=== PATIENT | female | born 1985 | race Caucasian/White ===

== ENCOUNTER → 2021-01-07 11:48 | Outpatient (CLI) | payer OTHER, MEDICAID, SELFPAY ==
[2021-01-07 12:54] LABS: Add Manual Diff / Slide Review NO; Basophils Absolute Auto 0 /uL (0-100); Basophils Percent Auto 0.7 % (0-2); Eosinophils Absolute Auto 100 /uL (0-450); Eosinophils Percent Auto 1.2 % (2-4); Lymphocytes Absolute Auto 2400 /uL (1100-4500); Lymphocytes Percent Auto 36.2 % (25-40); Mean Corpuscular HGB Conc 33.3 % (30-36); Mean Corpuscular Hemoglobin 28.9 PG (26-34); Mean Corpuscular Volume 86.9 fL (80-100); Monocytes Absolute Auto 500 /uL (0-900); Monocytes Percent Auto 7.3 % (3-14); Neutrophils Absolute Auto 3700 /uL (1500-7000); Neutrophils Percent Auto 54.6 % (50-75); Platelet Count 210 X10^3/uL (150-400); Red Blood Cell Count 4.49 X10^6/uL (4.0-5.2); Red Cell Distribution Width 12.9 % (11.6-14.8); White Blood Cell Count 6.7 X10^3/uL (4.5-11.0)
[2021-01-07 13:03] LABS: Hemoglobin A1C% w Est Avg Glu 4.9 % (4.0-6.0)
[2021-01-07 13:15] LABS: Cholesterol 163 mg/dL (140-199); HDL Cholesterol 46 mg/dL (40-60); LDL Cholesterol Calculated 104 mg/dL (<100); Triglycerides 64 mg/dL (35-150)
[2021-01-07 13:43] LABS: Ferritin 13 ng/mL (6-137)
[2021-01-07 13:57] LABS: HEMOLYSIS < 15 (0-50); Iron 46 ug/dL (37-170)
[2021-01-07 14:09] LABS: Percent Iron Saturation 15 % (15-50); Total Iron Binding Capacity 303 ug/dL (265-497); Transferrin 219 mg/dL (206-381)
[2021-01-07 14:29] LABS: TSH w/ Reflex to FT4 0.74 uIU/mL (0.47-4.68)
[2021-01-07 14:32] LABS: Urine Chlamydia NOT DETECTED; Urine N gonorrhoeae NOT DETECTED
[2021-01-08 05:30] LABS: HBsAg Screen Negative (Negative); Hepatitis A Antibody IgM Negative (Negative); Hepatitis B Core Antibody IgM Negative (Negative); Hepatitis C Antibody <0.1 s/co ratio (0.0-0.9); RPR Screen Non Reactive (Non Reactive)
[2021-01-09 19:59] LABS: HIV 1 & 2 Ab/Ag 4th Gen Combo NEGATIVE (NEGATIVE)
== END ==
PROVIDERS: PCP Family Medicine; Referring Provider Family Medicine; Visit Provider Family Medicine
DX: D64.9 Anemia, unspecified (principal); F41.8 Other specified anxiety disorders; R00.2 Palpitations; N80.9 Endometriosis, unspecified; Z11.3 Encounter for screening for infections with a predominantly sexual mode of transmission
CPT/HCPCS: 36415; 80061; 80074; 82728; 83036; 83540; 83550; 84443; 85025; 86592; 87389; 87491; 87591

== ENCOUNTER → 2022-05-14 08:16 | Outpatient (CLI) | payer OTHER, MEDICAID, SELFPAY ==
--- NOTE | 2022-05-14 08:19 | DI.CT.S_ITS ---
PROCEDURE: CT CHEST WO CON INDICATIONS: hemoptysis TECHNIQUE: Noncontrast 5 mm thick sections acquired from the pulmonary apices to the posterior costophrenic angles. 1 mm lung window, 5 mm thick coronal and sagittal and 7 mm axial MIP reformats were then acquired. For radiation dose reduction, the following was used: automated exposure control, adjustment of mA and/or kV according to patient size. COMPARISON: None. FINDINGS: Image quality: Excellent. Lungs and pleura: No acute air space opacities. No pleural effusions or pneumothorax. Central and peripheral airways are patent and normal in caliber. Mediastinum: Heart size is normal. No pericardial effusion. No mediastinal adenopathy by size criteria. Thoracic aorta and central pulmonary arteries are normal in size. Esophagus is normal in caliber. No hiatal hernia. Bones and chest wall: No suspicious bony lesions. No vertebral body compression fractures. No axillary or supraclavicular adenopathy by size criteria. Thyroid gland is unremarkable . Abdomen: Visualized upper abdominal solid organs and bowel loops appear normal in the absence of contrast. IMPRESSION: No evidence acute pulmonary process. Dictated by: Angel Santos M.D. on 05/14/2022 at 8:50 Approved by: Angel Santos M.D. on 05/14/2022 at 8:52
== END ==
PROVIDERS: PCP Family Medicine; Referring Provider Nurse Practitioner Family; Visit Provider Nurse Practitioner Family
DX: R04.2 Hemoptysis (principal)
CPT/HCPCS: 71250

== ENCOUNTER → 2022-05-22 11:06 | Outpatient (CLI) | payer OTHER, MEDICAID, SELFPAY ==
[2022-05-22 11:34] LABS: Add Manual Diff / Slide Review NO; Basophils Absolute Auto 0 /uL (0-100); Basophils Percent Auto 0.5 % (0-2); Eosinophils Absolute Auto 200 /uL (0-450); Eosinophils Percent Auto 3.7 % (2-4); Hematocrit 40.5 % (36-46); Hemoglobin 13.7 g/dL (12.0-16.0); Lymphocytes Absolute Auto 2400 /uL (1100-4500); Lymphocytes Percent Auto 37.3 % (25-40); Mean Corpuscular HGB Conc 33.8 % (30-36); Mean Corpuscular Hemoglobin 28.9 PG (26-34); Mean Corpuscular Volume 85.4 fL (80-100); Monocytes Absolute Auto 500 /uL (0-900); Monocytes Percent Auto 7.7 % (3-14); Neutrophils Absolute Auto 3300 /uL (1500-7000); Neutrophils Percent Auto 50.8 % (50-75); Platelet Count 184 X10^3/uL (150-400); Red Blood Cell Count 4.74 X10^6/uL (4.0-5.2); Red Cell Distribution Width 13.1 % (11.6-14.8); White Blood Cell Count 6.5 X10^3/uL (4.5-11.0)
[2022-05-22 12:02] LABS: Alanine Aminotransferase 93 IU/L (<35); Albumin 4.4 g/dL (3.5-5.0); Albumin Globulin Ratio 1.3 (1.0-2.8); Alkaline Phosphatase 58 U/L (38-126); Aspartate Aminotransferase 84 IU/L (14-36); BUN Creatinine Ratio 21.7 (6-22); Bilirubin Total 0.6 mg/dL (0.2-1.3); Blood Urea Nitrogen 13 mg/dL (7-17); Calcium 8.8 mg/dL (8.4-10.2); Carbon Dioxide 24 mmol/L (22-32); Chloride 105 mmol/L (98-107); Estimated Glomerular Filt Rate > 60 mL/min (>60); Globulin 3.4 g/dL (1.7-4.1); Glucose 97 mg/dL (70-100); HEMOLYSIS < 15 (0-50); Potassium 3.6 mmol/L (3.4-5.1); Sodium 140 mmol/L (137-145); Total Protein 7.8 g/dL (6.3-8.2)
== END ==
PROVIDERS: PCP Family Medicine; Referring Provider Family Medicine; Visit Provider Family Medicine
DX: R10.9 Unspecified abdominal pain (principal); R11.10 Vomiting, unspecified
CPT/HCPCS: 36415; 80053; 85025

== ENCOUNTER → 2022-06-18 12:28 | Outpatient (CLI) | payer OTHER, MEDICAID, SELFPAY ==
[2022-06-18 13:36] LABS: Add Manual Diff / Slide Review NO; Basophils Absolute Auto 0 /uL (0-100); Basophils Percent Auto 0.7 % (0-2); Eosinophils Absolute Auto 100 /uL (0-450); Eosinophils Percent Auto 1.1 % (2-4); Hematocrit 41.1 % (36-46); Hemoglobin 13.9 g/dL (12.0-16.0); Lymphocytes Absolute Auto 2000 /uL (1100-4500); Lymphocytes Percent Auto 38.5 % (25-40); Mean Corpuscular HGB Conc 33.7 % (30-36); Mean Corpuscular Hemoglobin 28.7 PG (26-34); Monocytes Absolute Auto 400 /uL (0-900); Monocytes Percent Auto 7.9 % (3-14); Neutrophils Absolute Auto 2700 /uL (1500-7000); Neutrophils Percent Auto 51.8 % (50-75); Platelet Count 211 X10^3/uL (150-400); Red Blood Cell Count 4.83 X10^6/uL (4.0-5.2); White Blood Cell Count 5.3 X10^3/uL (4.5-11.0)
[2022-06-18 13:55] LABS: Alanine Aminotransferase 26 IU/L (<35); Albumin 4.5 g/dL (3.5-5.0); Albumin Globulin Ratio 1.3 (1.0-2.8); Alkaline Phosphatase 59 U/L (38-126); Aspartate Aminotransferase 27 IU/L (14-36); BUN Creatinine Ratio 20.3 (6-22); Bilirubin Total 0.5 mg/dL (0.2-1.3); Blood Urea Nitrogen 12 mg/dL (7-17); Carbon Dioxide 23 mmol/L (22-32); Chloride 106 mmol/L (98-107); Estimated Glomerular Filt Rate > 60 mL/min (>60); Globulin 3.5 g/dL (1.7-4.1); Glucose 82 mg/dL (70-100); HEMOLYSIS < 15 (0-50); Potassium 4.7 mmol/L (3.4-5.1); Sodium 140 mmol/L (137-145)
[2022-06-25 14:32] LABS: H.pylori IgG 0.14 (0.00-0.79)
== END ==
PROVIDERS: PCP Family Medicine; Referring Provider Family Medicine; Visit Provider Family Medicine
DX: F43.10 Post-traumatic stress disorder, unspecified (principal); K92.2 Gastrointestinal hemorrhage, unspecified; R10.9 Unspecified abdominal pain
CPT/HCPCS: 36415; 80053; 85025; 86677

== ENCOUNTER → 2022-06-26 09:43 | Outpatient (CLI) | payer OTHER, MEDICAID, SELFPAY ==
--- NOTE | 2022-06-26 09:44 | DI.NM.S_ITS ---
PROCEDURE: NM HIDA WITH CCK PHARMACEUTICAL: 5.5 mCi Tc-99m mebrofenin IV; 1.7 mcg CCK IV. INDICATIONS: RUQ pain TECHNIQUE: Following intravenous administration of Tc-99m mebrofenin, sequential anterior abdominal images were obtained. To evaluate the contractile response of the gallbladder in response to Cholecystokinin (CCK), sincalide (0.02 ?g/kg) was administered by slow intravenous infusion approximately 60 minutes after the administration of the radiopharmaceutical. Sequential imaging was continued for 30 minutes after the start of CCK infusion. Gallbladder ejection fraction was calculated. COMPARISON: Merged With [facility], , ABDOMEN COMPLETE, 05/10/2017, 20:28. FINDINGS: Biliary scan: There is normal tracer uptake and excretion by the liver. There is normal visualization of the intrahepatic ducts, common bile duct, and gallbladder. There is normal tracer transit into the duodenum. CCK stimulation: There is normal contractile response of the gallbladder to CCK infusion. The calculated gallbladder ejection fraction is 57%; normal values are above 35%. It has been shown that any patient abdominal pain after CCK administration is related to the rate of CCK injection, rather than to any underlying gallbladder disease (Clinical Nuclear Medicine 2012; 37: 63-70. Journal of Nuclear Medicine 2014; 55: 1-9). IMPRESSION: 1. Normal filling of gallbladder. No evidence for acute cholecystitis. 2. Normal contractile response of gallbladder to CCK stimulation. Dictated by: Karma Arnold M.D. on 06/26/2022 at 12:50 Approved by: Karma Arnold M.D. on 06/26/2022 at 12:52
== END ==
PROVIDERS: PCP Family Medicine; Referring Provider Family Medicine; Visit Provider Family Medicine
DX: R10.11 Right upper quadrant pain (principal); K25.9 Gastric ulcer, unspecified as acute or chronic, without hemorrhage or perforation; K92.2 Gastrointestinal hemorrhage, unspecified; F43.10 Post-traumatic stress disorder, unspecified
CPT/HCPCS: 78227; A9537; J2805

== ENCOUNTER 2022-06-26 12:05 | Emergency (ER) | payer OTHER, MEDICAID, SELFPAY ==
[2022-06-26] VITALS (18 sets, daily range): BP systolic 123–138; BP diastolic 76–95; PULSE 60–89; RESP 22; TEMP 36.7; O2SAT 97–100
--- NOTE | 2022-06-26 12:56 | ED.ALLEREA ---
HPI - Allergic Reaction General Chief complaint: Allergic Reaction Stated complaint: nausea head pain physician ref sent from labs Time Seen by Provider: 06/26/22 12:54 Source: patient Mode of arrival: Wheelchair History of Present Illness HPI narrative: This is 36-year-old female with complex regional pain syndrome of her right lower extremity, insomnia, anxiety and multiple medication allergies. Patient was receiving an injection during her HIDA scan and developed nausea sensation that she was going to vomit but did not actually vomit and states she felt really anxious and that maybe her throat was tight. She states no rash or skin changes. She states she is very nauseated but not actively vomiting. No diarrhea. She states no chest pain, she felt a little tight in her chest but also states she feels really anxious that she might be having an allergic reaction as well. She states multiple allergies to medications she states she can not take Benadryl or steroids as they will induce steroid psychosis and that when she is had anaphylactic reactions she is received epinephrine either IM or continuously through a line and is then monitored once it stopped. Patient states she did also develop headache, she states she does have migraine she had a migraine last night it had improved but seemed to return when this was occurring. Patient denies any fevers or chills. Related Data Home Medications Medication Instructions Recorded Confirmed biotin 1 mg capsule 1 mg PO DAILY 12/26/20 06/18/22 cholecalciferol (vitamin D3) 250 250 mcg PO DAILY 12/26/20 06/18/22 mcg (10,000 unit) capsule clonazepam 1 mg tablet 1 - 2 mg PO BID 12/26/20 06/18/22 dextroamphetamine-amphetamine 10 20 mg PO BID #0 tabs 12/26/20 06/18/22 mg tablet (Adderall) epinephrine 0.3 mg/0.3 mL 0.3 mg IM ONCE 12/26/20 06/18/22 injection, auto-injector magnesium glycinate 100 mg tablet 100 mg PO DAILY 12/26/20 06/18/22 melatonin 10 mg capsule 10 mg PO BEDTIME PRN 12/26/20 06/18/22 meloxicam 7.5 mg tablet (Mobic) 15 mg PO [facility]CC 12/26/20 06/18/22 pregabalin 100 mg capsule (Lyrica) 200 mg PO BID 12/26/20 06/18/22 temazepam 30 mg capsule 30 mg PO BEDTIME PRN 12/26/20 06/18/22 zinc sulfate 50 mg zinc (220 mg) 50 mg PO DAILY 12/26/20 06/18/22 tablet hydromorphone 2 mg tablet 2 mg PO Q4-6H PRN 06/18/22 06/18/22 Previous Rx's Medication Instructions Recorded albuterol sulfate 90 mcg/actuation 2 puff inhalation Q6H PRN 05/12/22 aerosol inhaler shortness of breath or wheezing #8.5 grams benzonatate 100 mg capsule 100 mg PO BID-TID PRN cough #60 05/14/22 caps sertraline 50 mg tablet (Zoloft) 50 mg PO DAILY #60 tabs 06/18/22 ondansetron HCl 8 mg tablet 8 mg PO Q8H PRN nausea and 06/26/22 vomiting 5 days #10 tabs Allergies Allergy/AdvReac Type Severity Reaction Status Date / Time acetaminophen [ACETAMINOPHEN] Allergy Unknown Verified 06/26/22 13:15 adhesive [ADHESIVE] Allergy Unknown Verified 06/26/22 13:15 amitriptyline [AMITRIPTYLINE] Allergy Unknown Verified 06/26/22 13:15 aspirin [ASPIRIN] Allergy Unknown Verified 06/26/22 13:15 benzocaine [BENZOCAINE] Allergy Unknown Verified 06/26/22 13:15 butamben [From CETACAINE] Allergy Unknown Verified 06/26/22 13:15 dexamethasone [DEXAMETHASONE] Allergy Unknown Verified 06/26/22 13:15 dicloxacillin [DICLOXACILLIN] Allergy Unknown Verified 06/26/22 13:15 dihydroergocristine Allergy Unknown Verified 06/26/22 13:15 [DIHYDROERGOCRISTINE] dihydroergotamine Allergy Unknown Verified 06/26/22 13:15 [DIHYDROERGOTAMINE] diphenhydramine Allergy Unknown Verified 06/26/22 13:15 [DIPHENHYDRAMINE] frovatriptan [FROVATRIPTAN] Allergy Unknown Verified 06/26/22 13:15 hydroxyzine [HYDROXYZINE] Allergy Unknown Verified 06/26/22 13:15 ibuprofen [IBUPROFEN] Allergy Unknown Verified 06/26/22 13:15 latex [LATEX] Allergy Unknown Verified 06/26/22 13:15 metoclopramide Allergy Unknown Verified 06/26/22 13:15 [METOCLOPRAMIDE] nortriptyline [NORTRIPTYLINE] Allergy Unknown Verified 06/26/22 13:15 prasterone (DHEA) Allergy Unknown Verified 06/26/22 13:15 [PRASTERONE (DHEA)] prednisone [PREDNISONE] Allergy Unknown Verified 06/26/22 13:15 prochlorperazine Allergy Unknown Verified 06/26/22 13:15 [From COMPAZINE] promethazine [From PHENERGAN] Allergy Unknown Verified 06/26/22 13:15 rizatriptan [RIZATRIPTAN] Allergy Unknown Verified 06/26/22 13:15 sumatriptan [SUMATRIPTAN] Allergy Unknown Verified 06/26/22 13:15 tetracaine [TETRACAINE] Allergy Unknown Verified 06/26/22 13:15 topiramate [From TOPAMAX] Allergy Unknown Verified 06/26/22 13:15 valproic acid [VALPROIC ACID] Allergy Unknown Verified 06/26/22 13:15 vancomycin [VANCOMYCIN] Allergy Unknown Verified 06/26/22 13:15 verapamil [VERAPAMIL] Allergy Unknown Verified 06/26/22 13:15 PLASTIC MEDICAL TAPE Allergy Mild BLISTERS Uncoded 06/18/22 11:38 AT SITE Review of Systems Review of Systems ROS Unobtainable: All systems reviewed & are unremarkable except as noted in HPI and below Patient History Medical History Ankle pain Anxiety Asthma Cardiac arrhythmia Cervical cyst Chicken pox Depression Endometriosis Fibromyalgia Foot pain Fractures Gastric ulcer GI bleeding Headache Hearing loss Hemorrhoid Interstitial cystitis Kidney stones Migraines Ovarian cyst Painful menstrual periods PTSD (post-traumatic stress disorder) Ruptured tympanic membrane Shoulder pain (~2019) Stroke TIA (transient ischemic attack) Tinnitus Vertigo Surgical History Anesthesia History of appendectomy History of bladder surgery History of endometrial ablation History of tonsillectomy History of umbilical hernia repair Family History Mother Cancer Mental health problem Grandmother Breast cancer Mental health problem Grandfather Stroke Grandmother Stroke Family/Other Mental health problem Social History Smoking Status: Former smoker Smoking Status: Former smoker alcohol intake frequency: 0-2 drinks per day Exam Narrative Exam Narrative: GEN: well nourished, well appearing female, alert and oriented x 3, patient appears to be in [id number] distress. HEENT: Atraumatic, pupils are equal round reactive to light, extraocular movements are intact, nares are clear, TMs are clear with no fluid, there is no conjunctival pallor. Throat is clear without any exudates, erythema, tonsillar enlargement or uvular deviation, no oropharyngeal swelling, patient is resting in chair she is speaking in full sentences, she is some slight hoarseness, no stridor HEART: Regular rate and rhythm without murmur, clicks, rubs. LUNGS:Lungs clear to auscultation, no wheezes, rales, crackles, chest moves symmetrically ABD:bowel sounds normal, soft, non-tender, no guarding, rebound, rigidity, no masses noted, no hepatosplenomegaly MSCL: Non-tender, no muscle atrophy, muscles strength 5/5 upper and lower extremities, full range of motion, normal gait NEURO:CN 2-12 intact, sensation normal SKIN: No rash, no erythema or other skin changes. Initial Vital Signs Initial Vital Signs: Vital Signs Temperature 98.1 F 06/26/22 12:14 Pulse Rate 89 06/26/22 12:14 Respiratory Rate 22 06/26/22 12:14 Blood Pressure 138/88 06/26/22 12:14 Pulse Oximetry 100 06/26/22 12:14 Oxygen Delivery Method Room Air 06/26/22 12:14 Course Orders Ordered: Discontinued Medications Hydromorphone HCl (Hydromorphone 1 Mg Inj) 1 mg IV NOW ONE Stop: 06/26/22 14:21 Last Admin: 06/26/22 14:31 Dose: 1 mg Documented By: STEPHANIE Sodium Chloride (Normal Saline 0.9%) 500 mls @ 1,000 mls/hr IV BOLUS ONE Stop: 06/26/22 13:55 Last Infusion: 06/26/22 15:08 Dose: 0 mls/hr Documented By: Admin: 06/26/22 13:33 Dose: 1,000 mls/hr Documented By: DYLON Ketorolac Tromethamine (Ketorolac 30 Mg/Ml Vial) 30 mg IV NOW ONE Stop: 06/26/22 14:21 Last Admin: 04/07/23 14:30 Dose: 30 mg Documented By: STEPHANIE Lorazepam (Lorazepam 2 Mg/Ml Inj) 0.5 mg IV NOW ONE Stop: 06/26/22 14:21 Last Admin: 06/26/22 14:31 Dose: 0.5 mg Documented By: STEPHANIE Ondansetron HCl (Ondansetron 4 Mg/2 Ml Inj) 4 mg IV NOW ONE Stop: 06/26/22 12:57 Last Admin: 06/26/22 13:01 Dose: 4 mg Documented By: BESSIE Ondansetron HCl (Ondansetron 4 Mg/2 Ml Inj) 4 mg IV NOW ONE Stop: 06/26/22 13:27 Last Admin: 06/26/22 13:33 Dose: 4 mg Documented By: DYLON Vital Signs Vital signs: Vital Signs - 8 hr 06/26/22 12:14 06/26/22 13:19 06/26/22 13:30 Temperature 98.1 F Pulse Rate 89 87 79 Respiratory Rate 22 Blood Pressure 138/88 Pulse Oximetry 100 98 97 Oxygen Delivery Method Room Air 06/26/22 14:00 06/26/22 14:30 06/26/22 14:37 Temperature Pulse Rate 77 67 70 Respiratory Rate Blood Pressure Pulse Oximetry 98 100 100 Oxygen Delivery Method 06/26/22 14:37 06/26/22 14:39 06/26/22 14:39 Temperature Pulse Rate 72 Respiratory Rate Blood Pressure 123/79 133/95 H Pulse Oximetry 100 Oxygen Delivery Method 06/26/22 14:42 06/26/22 14:42 06/26/22 14:43 Temperature Pulse Rate 67 64 Respiratory Rate Blood Pressure 131/84 Pulse Oximetry 100 100 Oxygen Delivery Method 06/26/22 14:43 06/26/22 14:45 06/26/22 14:45 Temperature Pulse Rate 63 Respiratory Rate Blood Pressure 128/89 125/85 Pulse Oximetry 100 Oxygen Delivery Method 06/26/22 14:48 06/26/22 14:48 06/26/22 14:52 Temperature Pulse Rate 60 60 Respiratory Rate Blood Pressure 131/88 Pulse Oximetry 100 100 Oxygen Delivery Method 06/26/22 14:52 06/26/22 14:54 06/26/22 14:54 Temperature Pulse Rate 61 Respiratory Rate Blood Pressure 134/83 130/77 Pulse Oximetry 100 Oxygen Delivery Method 06/26/22 14:57 06/26/22 14:57 06/26/22 15:00 Temperature Pulse Rate 60 Respiratory Rate Blood Pressure 134/80 131/76 Pulse Oximetry 100 Oxygen Delivery Method 06/26/22 15:00 06/26/22 15:10 06/26/22 15:10 Temperature Pulse Rate 60 61 Respiratory Rate Blood Pressure 132/81 Pulse Oximetry 100 100 Oxygen Delivery Method 06/26/22 15:22 06/26/22 15:22 06/26/22 15:30 Temperature Pulse Rate 68 66 Respiratory Rate Blood Pressure 132/85 Pulse Oximetry 100 100 Oxygen Delivery Method MDM - Allergic Reaction MDM Narrative Medical decision making narrative: Patient was seen evaluated, she is hoarse she has nausea she felt like maybe her throat was clear but she also states she might just be anxious. She also has a little bit of a headache. She has multiple medication allergies and received an injection for her HIDA scan when her symptoms started. Patient also developed headache which she states is atypical. She is neurologically intact, she has had some nausea but no vomiting. Discussed with patient she states she can not have steroids or Benadryl for allergic reaction she can only receive epinephrine. Discussed giving IM epinephrine and she would like to try Zofran and see if this helps resolve her symptoms. Patient will require close monitoring and if any worsening she needs to receive IM epinephrine. Recheck patient states airway is feeling good but still having migraine symptoms. Patient has a letter from her provider at [facility] with her typical migraine cocktail which is where her 8 mg of Zofran and fluids came from. She has persistent headache symptoms and discussed giving her typical medication. Patient has a letter from Dr. Pb chan on official letter head for regimen, she has received a portion with fluids and Zofran already. I did speak with [facility], she received the medication that makes the gallbladder contract, the half-life that medication is 1.3 minutes. 500 mL of fluid, O2 at 12 liters/minute for at least 15 minutes, Zofran 8 mg, lorazepam 0.5mg, ketorolac 30 mg and Dilaudid 1 mg. Patient is feeling improved. She is not having any persistent changes terms of airway and I suspect she had more of a response or adverse reaction and not an allergic reaction to the HIDA scan. Patient did ask if she can have a short-term refill for Zofran she typically takes 8 mg tablets and scores them in half until she can follow-up for refill. Sent to [facility] in [place]. Discharge Plan Departure Patient Disposition: Home Clinical Impression: Migraine Activity Restrictions/Additional Instructions: It is unclear if you had a allergic reaction today or a normal response from the medication that you are given to make your gallbladder contract during your HIDA scan. I would continue your home medications as prescribed. I hope you continue to feel improved. Please return if you develop fevers, atypical migraine symptoms, new chest pain or shortness of breath, persistent vomiting, new or worsening abdominal pain or other new or concerning changes. Prescriptions: New ondansetron HCl 8 mg tablet 8 mg PO Q8H PRN (Reason: nausea and vomiting) 5 Days Qty: 10 0RF No Action dextroamphetamine-amphetamine [Adderall] 10 mg tablet 20 mg PO BID Qty: 0 benzonatate 100 mg capsule 100 mg PO BID-TID PRN (Reason: cough) Qty: 60 0RF albuterol sulfate 90 mcg/actuation HFA aerosol inhaler 2 puff inhalation Q6H PRN (Reason: shortness of breath or wheezing) Qty: 8.5 0RF meloxicam [Mobic] 7.5 mg tablet 15 mg PO AMCC pregabalin [Lyrica] 100 mg capsule 200 mg PO BID temazepam 30 mg capsule 30 mg PO BEDTIME PRN zinc sulfate 50 mg zinc (220 mg) tablet 50 mg PO DAILY clonazepam 1 mg tablet 1 - 2 mg PO BID epinephrine 0.3 mg/0.3 mL auto-injector 0.3 mg IM ONCE Rx Instructions: as a single dose melatonin 10 mg capsule 10 mg PO BEDTIME PRN biotin 1 mg capsule 1 mg PO DAILY cholecalciferol (vitamin D3) 250 mcg (10,000 unit) capsule 250 mcg PO DAILY magnesium glycinate 100 mg tablet 100 mg PO DAILY hydromorphone 2 mg tablet 2 mg PO Q4-6H PRN sertraline [Zoloft] 50 mg tablet 50 mg PO DAILY Qty: 60 0RF Referrals: Jose Miguel Gilliland MD [Primary Care Provider] - Stand Alone Forms: Patient Portal/API ED Sign-out Cosign ED Attending Cosignature Attestation:
[2022-06-26] MEDS: ONDANSETRON 4 MG/2 ML INJ IV ×2 (13:01→13:33)
--- NOTE | 2022-06-26 13:29 | PC.NURSE ---
Patients voice has a vocal vegas quality but is not stridor nor is patient c/o difficulty breathing or swallowing.
[2022-06-26] MEDS: SODIUM CHLORIDE 0.9% 500 ML 1000 ML IV (13:33)
[2022-06-26] MEDS: KETOROLAC 30 MG/ML VIAL IV (14:30)
[2022-06-26] MEDS: HYDROMORPHONE 1 MG INJ IV (14:31)
[2022-06-26] MEDS: LORazepam 2 MG/ML INJ 0.5 MG IV (14:31)
--- NOTE | 2022-06-26 14:45 | PC.NURSE ---
Addendum entered by Kassy Augustine R.N. 06/26/22 14:51: Pb Spencer MD [facility] Neurology [facility] [phone] Original Note: Pt brings photocopy of letter from Dr. Pb Spencer with instructions for how to treat her intractable migraine headaches. See chart for copy. Letter recommends pt be placed on 12L nonrebreather O2 mask while receiving 500 ML NS, 8mg zofran, 0.5 lorazepam, 30 mg toradol and 1mg dilaudid. Pt wearing dark sunglasses, room is dark and significant other at bedside.
--- NOTE | 2022-06-26 15:26 | PC.NURSE ---
Pt placed on 12L nonrebreather per neurologist recommendation for 15mins during medication administration.
== END 2022-06-26 15:37 | disposition home or self-care (01) ==
PROVIDERS: Emergency Provider Emergency Medicine; PCP Family Medicine
DX: G43.909 Migraine, unspecified, not intractable, without status migrainosus (principal); R11.0 Nausea; Z79.899 Other long term (current) drug therapy; R10.11 Right upper quadrant pain; K25.9 Gastric ulcer, unspecified as acute or chronic, without hemorrhage or perforation; K92.2 Gastrointestinal hemorrhage, unspecified; F43.10 Post-traumatic stress disorder, unspecified
CPT/HCPCS: 78227; 96361; 96374; 96375; 96376; 99283; 99284; A9537; J1170; J1885; J2060; J2405; J2805

== ENCOUNTER → 2022-07-07 08:14 | Outpatient (CLI) | payer OTHER, MEDICAID, SELFPAY ==
--- NOTE | 2022-07-07 | DI.RAD.S_ITS ---
PROCEDURE: FL BARIUM SWALLOW W AIR COMPARISON: None. INDICATIONS: Personal history of other specified conditions FINDINGS: Decreased peristaltic stripping of the esophagus, resulting in moderate residual of contrast within the esophagus. No filling defect or perceived mucosal defect. No hiatal hernia. No gastroesophageal reflux. Visualized portions of the stomach and duodenum are unremarkable. IMPRESSION: Severe esophageal dysmotility for age. Dictated by: Jose Alvarado M.D. on 07/07/2022 at 16:22 Approved by: Jose Alvarado M.D. on 07/07/2022 at 16:23
== END ==
PROVIDERS: PCP Family Medicine; Referring Provider Otolaryngology; Visit Provider Otolaryngology
DX: K22.4 Dyskinesia of esophagus (principal); Z87.898 Personal history of other specified conditions
CPT/HCPCS: 74221

== ENCOUNTER → 2022-07-24 17:29 | Outpatient (CLI) | payer OTHER, MEDICAID, SELFPAY ==
[2022-07-24 20:23] LABS: Alanine Aminotransferase 312 IU/L (<35); Albumin 4.5 g/dL (3.5-5.0); Albumin Globulin Ratio 1.3 (1.0-2.8); Alkaline Phosphatase 90 U/L (38-126); Aspartate Aminotransferase 141 IU/L (14-36); BUN Creatinine Ratio 19.4 (6-22); Bilirubin Total 0.3 mg/dL (0.2-1.3); Blood Urea Nitrogen 14 mg/dL (7-17); Calcium 9.1 mg/dL (8.4-10.2); Carbon Dioxide 23 mmol/L (22-32); Chloride 104 mmol/L (98-107); Estimated Glomerular Filt Rate > 60 mL/min (>60); Globulin 3.6 g/dL (1.7-4.1); Glucose 70 mg/dL (70-100); HEMOLYSIS 49 (0-50); Potassium 4.2 mmol/L (3.4-5.1); Sodium 138 mmol/L (137-145); Total Protein 8.1 g/dL (6.3-8.2)
[2022-07-24 20:40] LABS: Free T4, Direct Thyroxine 1.24 ng/dL (0.78-2.19)
[2022-07-24 20:54] LABS: Thyroid Stimulating Hormone 2.94 uIU/mL (0.47-4.68)
[2022-07-28 20:36] LABS: Deamidated Gliadin Ab IgA 2 units (0-19); Deamidated Gliadin Ab IgG 2 units (0-19); Immunoglobulin A,Qn 163 mg/dL (87-352); t-Transglutaminase IgA <2 U/mL (0-3)
== END ==
PROVIDERS: PCP Family Medicine; Referring Provider Physician Assistant; Visit Provider Physician Assistant
DX: R19.8 Other specified symptoms and signs involving the digestive system and abdomen (principal)
CPT/HCPCS: 36415; 80053; 82784; 83516; 84439; 84443

== ENCOUNTER 2022-09-02 13:19 | Emergency (ER) | payer OTHER, MEDICAID, SELFPAY | END 2022-09-02 13:26 | disposition left against medical advice (07) | PROVIDERS: Emergency Provider Emergency Medicine; PCP Family Medicine | DX: K22.4 Dyskinesia of esophagus (principal) ==

== ENCOUNTER → 2023-07-23 11:23 | Outpatient (CLI) | payer OTHER, MEDICAID, SELFPAY ==
[2023-07-23 12:55] LABS: Hematocrit 38.9 % (36-46); Mean Corpuscular HGB Conc 33.5 % (30-36); Mean Corpuscular Hemoglobin 28.4 PG (26-34); Mean Corpuscular Volume 84.8 fL (80-100); Platelet Count 213 X10^3/uL (150-400); Red Blood Cell Count 4.59 X10^6/uL (4.0-5.2); Red Cell Distribution Width 13.9 % (11.6-14.8); White Blood Cell Count 5.8 X10^3/uL (4.5-11.0)
[2023-07-23 13:22] LABS: Alanine Aminotransferase 18 IU/L (<35); Albumin 4.8 g/dL (3.5-5.0); Albumin Globulin Ratio 1.5 (1.0-2.8); Alkaline Phosphatase 64 U/L (38-126); Aspartate Aminotransferase 22 IU/L (14-36); BUN Creatinine Ratio 17.5 (6-22); Bilirubin Total 0.4 mg/dL (0.2-1.3); Blood Urea Nitrogen 10 mg/dL (7-17); C-Reactive Protein Quant < 0.5 mg/dL (<1.0); Calcium 9.5 mg/dL (8.4-10.2); Carbon Dioxide 18 mmol/L (22-32); Chloride 108 mmol/L (98-107); Cholesterol 202 mg/dL (140-199); Estimated Glomerular Filt Rate > 60 mL/min (>60); Globulin 3.2 g/dL (1.7-4.1); Glucose 92 mg/dL (70-100); HDL Cholesterol 53 mg/dL (40-60); HEMOLYSIS < 15 (0-50); LDL Cholesterol Calculated 136 mg/dL (<100); Lactate Dehydrogenase 113 U/L (120-246); Potassium 3.8 mmol/L (3.4-5.1); Sodium 137 mmol/L (137-145); Triglycerides 67 mg/dL (35-150)
[2023-07-23 13:47] LABS: TSH w/ Reflex to FT4 0.71 uIU/mL (0.47-4.68)
[2023-07-23 18:53] LABS: Erythrocyte Sedimentation Rate 13 MM/HR (0-20)
[2023-07-23 19:53] LABS: Neutrophils Absolute Manual 2842 /uL (3000-5900); Total Cells Counted 100
[2023-07-23 19:55] LABS: RBC Morphology Normal Morphology
== END ==
PROVIDERS: PCP Family Medicine; Referring Provider Family Medicine; Visit Provider Family Medicine
DX: D68.59 Other primary thrombophilia (principal); R22.9 Localized swelling, mass and lump, unspecified; R23.3 Spontaneous ecchymoses; M79.7 Fibromyalgia; N20.0 Calculus of kidney; K25.9 Gastric ulcer, unspecified as acute or chronic, without hemorrhage or perforation; I49.9 Cardiac arrhythmia, unspecified
CPT/HCPCS: 36415; 80053; 80061; 83615; 84443; 85025; 85651; 86140

== ENCOUNTER → 2023-09-06 08:45 | Outpatient (CLI) | payer OTHER, MEDICAID, SELFPAY ==
[2023-09-06 10:34] LABS: Add Manual Diff / Slide Review NO; Basophils Absolute Auto 100 /uL (0-100); Basophils Percent Auto 0.8 % (0-2); Eosinophils Absolute Auto 100 /uL (0-450); Eosinophils Percent Auto 1.4 % (2-4); Hematocrit 38.9 % (36-46); Lymphocytes Absolute Auto 2800 /uL (1100-4500); Lymphocytes Percent Auto 35.7 % (25-40); Mean Corpuscular HGB Conc 33.3 % (30-36); Mean Corpuscular Hemoglobin 28.9 PG (26-34); Mean Corpuscular Volume 86.7 fL (80-100); Monocytes Absolute Auto 500 /uL (0-900); Monocytes Percent Auto 6.8 % (3-14); Neutrophils Absolute Auto 4400 /uL (1500-7000); Neutrophils Percent Auto 55.3 % (50-75); Platelet Count 217 X10^3/uL (150-400); Red Blood Cell Count 4.49 X10^6/uL (4.0-5.2); Red Cell Distribution Width 13.3 % (11.6-14.8); White Blood Cell Count 7.9 X10^3/uL (4.5-11.0)
[2023-09-10 17:36] LABS: Percent Free Testosterone 1.65 % (0.50-2.80); Testosterone Free 0.44 ng/dL (0.10-0.85); Testosterone Total 26.5 ng/dL (10.0-55.0)
== END ==
PROVIDERS: PCP Family Medicine; Referring Provider Family Medicine; Visit Provider Family Medicine
DX: R42 Dizziness and giddiness (principal); G90.1 Familial dysautonomia [Riley-Day]
CPT/HCPCS: 36415; 84402; 84403; 85025

== ENCOUNTER → 2023-09-08 15:01 | Outpatient (CLI) | payer OTHER, MEDICAID, SELFPAY ==
[2023-09-10 11:36] LABS: Candida species Negative (Negative); Gardnerella vaginalis Negative (Negative); Trichomoas vaginalis Negative (Negative)
== END ==
PROVIDERS: PCP Family Medicine; Visit Provider Obstetrics & Gynecology
DX: N89.8 Other specified noninflammatory disorders of vagina (principal)
CPT/HCPCS: 87480; 87510; 87660

== ENCOUNTER → 2023-09-08 15:27 | Outpatient (CLI) | payer OTHER, MEDICAID, SELFPAY ==
[2023-09-09 18:11] LABS: HIV 1 & 2 Ab/Ag 4th Gen Combo NEGATIVE (NEGATIVE); Hep C Virus Ab w/Reflex Quant NEGATIVE s/c (NEGATIVE)
[2023-09-10 02:08] LABS: RPR Screen Non Reactive (Non Reactive)
== END ==
PROVIDERS: PCP Family Medicine; Referring Provider Obstetrics & Gynecology; Visit Provider Obstetrics & Gynecology
DX: N89.8 Other specified noninflammatory disorders of vagina (principal)
CPT/HCPCS: 36415; 86592; 86803; 87389; 87480; 87510; 87660

== ENCOUNTER → 2023-09-29 09:31 | Outpatient (CLI) | payer OTHER, MEDICAID, SELFPAY | LOC: CAR 09:33 | PROVIDERS: PCP Family Medicine; Referring Provider Family Medicine; Visit Provider Family Medicine | DX: R00.2 Palpitations (principal) | CPT/HCPCS: 93246 ==

== ENCOUNTER → 2024-02-15 09:11 | Outpatient (CLI) | payer OTHER, MEDICAID, SELFPAY ==
[2024-02-15 10:01] LABS: Add Manual Diff / Slide Review NO; Basophils Absolute Auto 100 /uL (0-100); Basophils Percent Auto 0.8 % (0-2); Eosinophils Absolute Auto 200 /uL (0-450); Eosinophils Percent Auto 2.2 % (2-4); Hematocrit 40.1 % (36-46); Hemoglobin 13.3 g/dL (12.0-16.0); Lymphocytes Absolute Auto 2800 /uL (1100-4500); Lymphocytes Percent Auto 39.7 % (25-40); Mean Corpuscular HGB Conc 33.1 % (30-36); Mean Corpuscular Hemoglobin 28.8 PG (26-34); Monocytes Absolute Auto 500 /uL (0-900); Neutrophils Absolute Auto 3500 /uL (1500-7000); Neutrophils Percent Auto 50.3 % (50-75); Platelet Count 213 X10^3/uL (150-400); Red Blood Cell Count 4.61 X10^6/uL (4.0-5.2); Red Cell Distribution Width 12.9 % (11.6-14.8)
[2024-02-15 10:20] LABS: C-Reactive Protein Quant < 0.5 mg/dL (<1.0)
[2024-02-15 10:21] LABS: Rheumatoid Factor < 8.6 IU/mL (<12.0)
[2024-02-15 11:02] LABS: Erythrocyte Sedimentation Rate 10 MM/HR (0-20)
[2024-02-18 10:13] LABS: CCP Antibodies IgG/IgA 3 units (0-19)
== END ==
PROVIDERS: PCP Family Medicine; Referring Provider Family Medicine; Visit Provider Family Medicine
DX: N94.6 Dysmenorrhea, unspecified (principal); N80.9 Endometriosis, unspecified; G90.A Postural orthostatic tachycardia syndrome [POTS]; R53.83 Other fatigue; G43.909 Migraine, unspecified, not intractable, without status migrainosus; F32.A Depression, unspecified; M79.7 Fibromyalgia
CPT/HCPCS: 36415; 85025; 85651; 86038; 86140; 86200; 86430

== ENCOUNTER → 2024-11-21 12:12 | Outpatient (CLI) | payer OTHER, SELFPAY ==
--- NOTE | 2024-11-21 12:16 | DI.MG.S_ITS ---
US breast BI limited, MM diagnostic mammo BI: 11/21/2024 BI-RADS: 3 CLINICAL: 39-year old female for bilateral diagnostic mammogram and bilateral diagnostic breast ultrasound. Tyrer-Cuzick lifetime risk of 47.9%. Current reported family history of breast cancer: maternal grandmother, mother and maternal aunt. The patient reports a palpable abnormality (9 months) in the left breast. PRIOR EXAMS: 06/01/2017, CT chest 06/03/2024, 04/24/2024. MAMMOGRAPHY TECHNIQUE: 2D and 3D (tomosynthesis) digital mammographic views obtained, with additional images as needed for full coverage. Current study was also evaluated with a Computer Aided Detection (CAD) system. ULTRASOUND TECHNIQUE: Real-time macias scale and color doppler imaging of the area of clinical interest was performed with image documentation. TARGETED Bilateral Breast Ultrasound: Real-time ultrasound exam was performed focused to area of clinical and/or imaging concern. DENSITY C. The breasts are heterogeneously dense, which may obscure small masses. MAMMOGRAPHY FINDINGS Right (finding-1): Outer at 9:00, Middle depth, measuring 0.6cm: There is a circumscribed, oval, equal-density mass present. Left (finding-2): Inner Central, Middle depth: A skin marker was placed in the area of concern, and no mammographic abnormalities are identified or to account for concern by the patient of a palpable lump. No suspicious mass, asymmetry, microcalcification, or other abnormality seen. Left (finding-3): Upper Central, Middle depth: A skin marker was placed in the area of concern, and no mammographic abnormalities are identified or to account for concern by the patient of a palpable lump. No suspicious mass, asymmetry, microcalcification, or other abnormality seen. Left (finding-4): CC only, Inner, Posterior depth, measuring 1cm: Underlying surface marker and correlating with palpable lump there is a circumscribed, oval mass present. This finding was present on CT chest 06/03/2024 and 04/24/2024. ULTRASOUND FINDINGS Right (finding-1): Outer at 9:00, 6 cm from nipple, measuring 0.5 x 0.5 x 0.6 cm: Correlating with findings on mammogram, there is a simple anechoic cyst. Doppler shows no vascularity. Left: Lower at 6:00, 2 cm from nipple, measuring 0.3 x 0.3 x 0.4 cm: There is a complicated cyst present. This is an incidental finding. Left: Lower Outer at 5:00, 2 cm from nipple, measuring 0.3 x 0.2 x 0.3 cm: There is a complicated cyst present. This is an incidental finding. Left (finding-4): Superficial Depth, measuring 1.1 x 0.7 x 1.1 cm: This mass is located along the medial chest. Underlying surface marker and correlating with palpable lump and also with findings on mammogram there is an oval, circumscribed mass with complex echo pattern. This could represent a subdermal sebaceous cyst although no definite skin tract is seen. Left (finding-2): Lower Inner at 8:00, 10 cm from nipple: Underlying the surface marker, there is no sonographic abnormality to account for concern by the patient of a palpable lump. Left (finding-3): Central, Retroareolar: There is no sonographic abnormality to account for concern by the patient of a palpable lump. IMPRESSION: Right * No evidence of malignancy with benign findings. Left (Complicated Cyst): Lower at 6:00, 2 cm from nipple, measuring 0.3 x 0.3 x 0.4 cm * Probably Benign. Left (Complicated Cyst): Lower Outer at 5:00, 2 cm from nipple, measuring 0.3 x 0.2 x 0.3 cm * Probably Benign. Left (Mass): Superficial Depth, measuring 1.1 x 0.7 x 1.1 cm * Probably Benign. RECOMMENDATIONS Left * Recommend clinical follow up for persistent or worsening symptoms with instructions to return sooner if there is development of any clinically suspicious findings in the interim. * Six month followup with diagnostic ultrasound. COMMENTS: Findings and recommendations were conveyed to the patient during today's evaluation. In addition, this patient has an elevated lifetime risk for breast cancer of over 20%. Recommend consideration for annual screening breast MRI as an adjunct to screening mammography. OVERALL ASSESSMENT CATEGORY BI-RADS-3: Probably Benign. ELECTRONICALLY SIGNED: Ely Blake M.D. on 11/21/2024 at 04:54:10 PM PT Interpreting Station ID: [id number]
--- NOTE | 2024-11-21 12:16 | DI.US.S_ITS ---
PROCEDURE: US PELVIC COMPLETE INDICATIONS: persistent vaginal bleeding TECHNIQUE: Real-time scanning was performed of the pelvic organs, with image documentation. Additional endovaginal scanning was necessary due to incomplete visualization of the adnexal and endometrial structures by transabdominal scanning. COMPARISON: CT, ABDOMEN/PELVIS WITH CONTRAST, 10/28/2015, 16:40. FINDINGS: Uterus: Uterus is anteverted and normal in size at 7.6 x 3.0 x 3.3 cm. The myometrium is homogeneous. The endometrium measures 3 mm combined thickness. Ovaries: The right ovary measures 3.0 x 1.1 x 1.6 cm, with a calculated ovarian volume of 2.2 cc. The left ovary measures 2.4 x 1.4 x 1.6 cm, with a calculated ovarian volume of 1.9 cc. The ovaries have a normal sonographic appearance. Less than 12 follicles can be seen in each ovary. No adnexal masses are seen. Other: No pathologic free abdominal or pelvic fluid. IMPRESSION: No source for menorrhagia identified. We strive to produce accurate, complete, and clear reports of imaging services. To assist us in improving patient care, this report was composed using standard report templates and voice recognition software. Therefore, it may contain abnormal punctuation, insertions and/or omissions. Occasional wrong-word or sound-alike substitutions may occur. Though we review the report and make efforts to correct it, we do recommend that the report be read carefully in proper context to recognize any text inaccuracies. Dictated by: Indra REA Interpreted: Jose Alvarado MD on 11/21/2024 at 13:27 Transcribed by: KUNAL on 11/21/2024 at 13:30 Approved by: Jose Alvarado M.D. on 11/30/2024 at 7:56
== END ==
PROVIDERS: PCP Family Medicine; Referring Provider Family Medicine; Visit Provider Family Medicine
DX: R92.8 Other abnormal and inconclusive findings on diagnostic imaging of breast (principal); N63.25 Unspecified lump in the left breast, overlapping quadrants; N60.01 Solitary cyst of right breast; N60.02 Solitary cyst of left breast; R92.333 Mammographic heterogeneous density, bilateral breasts; Z80.3 Family history of malignant neoplasm of breast; N94.6 Dysmenorrhea, unspecified
CPT/HCPCS: 76642; 76830; 76856; 77066; G0279

== ENCOUNTER → 2024-11-30 15:30 | Outpatient (CLI) | payer OTHER, SELFPAY ==
[2024-11-30 17:04] LABS: Add Manual Diff / Slide Review NO; Hematocrit 37.5 % (36-46); Hemoglobin 12.5 g/dL (12.0-16.0); Lymphocytes Absolute Auto 2400 /uL (1100-4500); Mean Corpuscular HGB Conc 33.4 % (30-36); Mean Corpuscular Hemoglobin 28.5 PG (26-34); Mean Corpuscular Volume 85.3 fL (80-100); Platelet Count 265 X10^3/uL (150-400)
[2024-11-30 17:16] LABS: HEMOLYSIS < 15 (0-50); Iron 57 ug/dL (37-170)
[2024-11-30 17:29] LABS: Percent Iron Saturation 14 % (15-50); Total Iron Binding Capacity 409 ug/dL (265-497); Transferrin 354 mg/dL (206-381)
[2024-11-30 17:48] LABS: TSH w/ Reflex to FT4 0.92 uIU/mL (0.47-4.68)
[2024-11-30 17:53] LABS: Ferritin 16 ng/mL (6-137)
== END ==
PROVIDERS: PCP Family Medicine; Referring Provider Family Medicine; Visit Provider Family Medicine
DX: I26.99 Other pulmonary embolism without acute cor pulmonale (principal); Z80.3 Family history of malignant neoplasm of breast; N92.0 Excessive and frequent menstruation with regular cycle; N80.9 Endometriosis, unspecified; L65.9 Nonscarring hair loss, unspecified
CPT/HCPCS: 36415; 82728; 83540; 83550; 84443; 85025; 85379

== ENCOUNTER 2025-01-03 16:27 | Emergency (ER) | payer OTHER, SELFPAY ==
[2025-01-03] VITALS (9 sets, daily range): BP systolic 111–147; BP diastolic 74–89; PULSE 60–80; RESP 16–27; TEMP 36.9; O2SAT 97–100; BMI 24.4
--- NOTE | 2025-01-03 16:42 | DI.RAD.S_ITS ---
PROCEDURE: XR CHEST 1V INDICATIONS: Possible stroke TECHNIQUE: One view of the chest was acquired. COMPARISON: [facility], , CHEST FOR PICC PLACEMENT, 10/30/2015, 16:08. FINDINGS: Surgical changes and devices: None. Lungs and pleura: Lungs are clear. No pleural effusions or pneumothorax. Mediastinum: Mediastinal contours appear normal. Heart size is normal. Bones and chest wall: No suspicious bony lesions. Overlying soft tissues appear unremarkable. IMPRESSION: No acute cardiopulmonary abnormality is seen. Dictated by: Anadn Torres M.D. on 01/03/2025 at 17:14 Approved by: Anand Torres M.D. on 01/03/2025 at 17:14
--- NOTE | 2025-01-03 16:42 | DI.CT.S_ITS ---
PROCEDURE: CT STROKE INDICATIONS: Positive BE-FAST, Stroke symptoms TECHNIQUE: Noncontrast 4.5 mm thick angled axial sections acquired from the foramen magnum to the vertex, with coronal reformats. For radiation dose reduction, the following was used: automated exposure control, adjustment of mA and/or kV according to patient size. COMPARISON: None. FINDINGS: Image quality: Diagnostic. CSF spaces: Basal cisterns are patent. No extra-axial fluid collections. Ventricles are normal in size and shape. Brain: No midline shift. No intracranial mass effect or hemorrhage. Glasgow- white matter interface is normal. Skull and face: Calvarium and visualized facial bones are intact, without suspicious lesions. Left ear piercing. Left brow piercing. Sinuses: Visualized sinuses and mastoids are clear. IMPRESSION: Negative examination. Direct phone call of results to Dr. Keira Monroy by myself at 4:59 p.m. PST 01/03/2025 This study fulfills neurological imaging criteria for inclusion or exclusion of acute stroke therapies based on available published neurological imaging guidelines. Dictated by: Anand Torres M.D. on 01/03/2025 at 16:55 Approved by: Anand Torres M.D. on 01/03/2025 at 17:00
--- NOTE | 2025-01-03 16:42 | DI.CT.S_ITS ---
PROCEDURE: CT ANGIO HEAD AND NECK INDICATIONS: Left sided weakness TECHNIQUE: After the administration of intravenous contrast, 1 mm thick sections acquired from the aortic arch through the [place] of [place]. 3-dimensional euijyzg-ecqtwmnii-uqcifgrfuz (MIP) and/or volume rendering reformats were acquired of the central intracranial vasculature and neck separately. For radiation dose reduction, the following was used: automated exposure control, adjustment of mA and/or kV according to patient size. COMPARISON: None. FINDINGS: Image quality: Diagnostic. Cerebral CT Angiogram: Internal carotid arteries: No acute findings. Intracranial ICA are patent with no significant stenosis. No occlusion. No aneurysm. Anterior cerebral arteries: Unremarkable. No significant stenosis. No occlusion. No aneurysm. Middle cerebral arteries: Unremarkable. No significant stenosis. No occlusion. No aneurysm. Posterior cerebral arteries: Unremarkable. No significant stenosis. No occlusion. No aneurysm. Basilar artery: Unremarkable. No significant stenosis. No occlusion. No aneurysm. Vertebral arteries: Unremarkable as visualized. Dural venous sinuses: Unremarkable given phase of enhancement. Other: Arterial phase appearance of the brain parenchyma is unremarkable. Neck CT Angiogram: Internal carotid arteries: Unremarkable. No significant stenosis. No dissection or occlusion. Common carotid arteries: Unremarkable. No significant stenosis. No dissection or occlusion. External carotid arteries: Unremarkable. No occlusion. Vertebral arteries: Unremarkable. No significant stenosis. No dissection or occlusion. Aortic Arch and Mediastinum: Partially visualized aortic arch unremarkable without evidence of aneurysm. Origins of the great vessels unremarkable. Other: Arterial phase soft tissues of the neck and chest are unremarkable. IMPRESSION: No significant intracranial arterial abnormality is seen. No significant abnormality is seen within the arteries of the neck. Any quantitative measurements of stenosis were performed using NASCET criteria. Dictated by: Anand Torres M.D. on 01/03/2025 at 18:10 Approved by: Anand Torres M.D. on 01/03/2025 at 18:14
[2025-01-03 17:26] LABS: Add Manual Diff / Slide Review NO; Hematocrit 38.4 % (36-46); Hemoglobin 12.8 g/dL (12.0-16.0); Lymphocytes Absolute Auto 2800 /uL (1100-4500); Mean Corpuscular HGB Conc 33.5 % (30-36); Mean Corpuscular Hemoglobin 28.0 PG (26-34); Mean Corpuscular Volume 83.5 fL (80-100); Platelet Count 261 X10^3/uL (150-400)
--- NOTE | 2025-01-03 17:27 | DI.MRI.S_ITS ---
PROCEDURE: MR HEAD/BRAIN WO CON INDICATIONS: left sided weakness, prior cva TECHNIQUE: Noncontrast axial T1 spin echo, axial T2 fast spin echo, sagittal and axial FLAIR, coronal T2 fast spin echo, axial gradient echo, axial diffusion and ADC through the brain. COMPARISON: [facility], MR, BRAIN WITHOUT CONTRAST, 04/10/2014, 18:33. FINDINGS: Image quality: Excellent. CSF Spaces: Basal cisterns are patent. No extra-axial fluid collections. Ventricles are normal in size and shape. Brain: No intracranial masses or hemorrhage. Several scattered tiny subcortical T2 and FLAIR hyperintensities are seen in bilateral anterior frontal lobes, and a few more prominent in the right lateral frontal lobe, series 17, image 14 and 15. No restricted diffusion to suggest acute infarct. No susceptibility artifact on gradient imaging. Glasgow/white matter interface is normal. Brainstem appears normal. Normal intravascular flow voids are present. Skull and face: Calvarium has normal marrow signal. Orbits appear normal. Sinuses: Sinuses and mastoids are clear. IMPRESSION: No restricted diffusion to suggest acute infarct. Multiple small subcortical white matter FLAIR hyperintensities in the frontal lobes, increased in number compared to the prior exam. These are nonspecific, but morphology is most suggestive of migraine headaches, less likely arteriosclerosis or vasculitis. No evidence of microhemorrhages. Dictated by: Viri Tang M.D. on 01/03/2025 at 18:32 Approved by: Viri Tang M.D. on 01/03/2025 at 18:46
[2025-01-03 17:32] LABS: INR 1.1 (0.9-1.3); Prothrombin Time 12.8 SECONDS (9.4-12.5)
[2025-01-03 17:35] LABS: PTT Partial Thromboplastin Tim 31 SECONDS (25.1-36.5)
[2025-01-03 17:41] LABS: Alanine Aminotransferase 16 IU/L (<35); Albumin 4.7 g/dL (3.5-5.0); Albumin Globulin Ratio 1.5 (1.0-2.8); Alkaline Phosphatase 61 U/L (38-126); Blood Urea Nitrogen 10 mg/dL (7-17); Calcium 8.7 mg/dL (8.4-10.2); Carbon Dioxide 19 mmol/L (22-32); Chloride 112 mmol/L (98-107); Creatine Kinase 43 U/L (30-135); Estimated Glomerular Filt Rate > 60 mL/min (>60); Globulin 3.2 g/dL (1.7-4.1); Glucose 93 mg/dL (70-99); HEMOLYSIS < 15 (0-50); Potassium 3.9 mmol/L (3.4-5.1); Sodium 141 mmol/L (137-145); Total Protein 7.9 g/dL (6.3-8.2)
[2025-01-03 17:52] LABS: Troponin I < 0.012 ng/mL (0.01-0.034)
--- NOTE | 2025-01-03 17:59 | ED.NEUROSD ---
HPI - Neuro Symptoms/Deficit <Keira Porfirio, DO - Last Filed: 01/05/25 07:45> General Chief Complaint: Neuro Symptoms/Deficit Stated Complaint: seizure, weakness Time Seen by Provider: 01/03/25 16:44 Source: patient Mode of arrival: Wheelchair History of Present Illness HPI Narrative: Patient is a 39-year-old female multiple medical comorbidities including CVA with some left-sided deficits, pulmonary embolism on Eliquis, pots syndrome, presenting today from the infusion clinic. She typically goes to get infusions for her POTS. During her infusion today she started shaking has been witnessed it shaking getting stiff I rolled in the back of her head. She did not bite her tongue or have urinary incontinence but when she started coming around she was confused afterwards. Concern is for a seizure she has no prior history of seizure she now has some left-sided weakness much worse and different than her baseline along with some numbness in her left face. She is awake alert and oriented now. On Anticoagulants: Yes (Eliquis) Related Data Home Medications ?Medication ?Instructions ?Recorded ?Confirmed biotin 1 mg capsule 1 mg PO DAILY 12/26/20 01/03/25 cholecalciferol (vitamin D3) 250 250 mcg PO DAILY 12/26/20 01/03/25 mcg (10,000 unit) capsule clonazepam 1 mg tablet 1 - 2 mg PO BID 12/26/20 01/03/25 magnesium glycinate 100 mg (as 100 mg PO DAILY 12/26/20 01/03/25 glycinate) tablet melatonin 10 mg capsule 10 mg PO BEDTIME PRN insomnia 12/26/20 12/20/24 zinc sulfate 50 mg zinc (220 mg) 50 mg PO DAILY 12/26/20 12/20/24 tablet Held on 12/20/24. Instructions: patient choosing not to take hyoscyamine sulfate 0.125 mg tablet See Rx Instructions PO .COMPLEX 09/08/23 12/20/24 PRN dyspepsia temazepam 15 mg capsule 15 mg PO .COMPLEX insomnia, PTSD 09/08/23 01/03/25 apixaban 5 mg tablet 5 mg PO BID 05/30/24 01/03/25 hydromorphone 2 mg tablet 2 mg PO Q6H PRN pain 12/19/24 12/20/24 Held on 01/04/25. Instructions: Home Medication placed on hold at Doctor's office naloxone 4 mg/actuation nasal spray 1 spray intranasal Q3M 12/19/24 12/20/24 propranolol 10 mg tablet 10 - 20 mg PO ONCE PM 12/19/24 01/03/25 sertraline 100 mg tablet 150 mg PO DAILY 12/19/24 01/03/25 Previous Rx's ?Medication ?Instructions ?Recorded Disabled Parking Permit #1 ea 08/19/23 epinephrine 0.3 mg/0.3 mL 0.3 mg (0.3 mL) IM ONCE #2 ea 10/06/23 injection, auto-injector levalbuterol tartrate 45 2 puff inhalation Q4-6H PRN 10/13/23 mcg/actuation aerosol inhaler shortness of breath or wheezing #15 grams ondansetron HCl 8 mg tablet See Rx Instructions PO Q12H PRN 08/22/24 nausea and vomiting #30 tabs pregabalin 100 mg capsule (Lyrica) 100 mg PO TID #270 caps 11/30/24 levetiracetam 750 mg tablet 750 mg PO Q12H #60 tabs 01/03/25 (Keppra) oxycodone 5 mg tablet 5 mg PO BID PRN pain #5 tabs 01/03/25 oxycodone 5 mg tablet 5 mg PO BID PRN pain #60 tabs 01/04/25 Allergies Allergy/AdvReac Type Severity Reaction Status Date / Time acetaminophen (ACETAMINOPHEN) Allergy Unknown Anaphylaxis Verified 01/03/25 14:27 adhesive (ADHESIVE) Allergy Unknown Anaphylaxis Verified 01/03/25 14:27 amitriptyline (AMITRIPTYLINE) Allergy Unknown Anaphylaxis Verified 01/03/25 14:27 benzocaine (BENZOCAINE) Allergy Unknown Anaphylaxis Verified 01/03/25 14:27 butamben (From CETACAINE) Allergy Unknown Anaphylaxis Verified 01/03/25 14:27 dexamethasone (DEXAMETHASONE) Allergy Unknown Anaphylaxis Verified 01/03/25 14:27 dicloxacillin (DICLOXACILLIN) Allergy Unknown Anaphylaxis Verified 01/03/25 14:27 dihydroergocristine Allergy Unknown Anaphylaxis Verified 01/03/25 14:27 (DIHYDROERGOCRISTINE) dihydroergotamine Allergy Unknown Anaphylaxis Verified 01/03/25 14:27 (DIHYDROERGOTAMINE) diphenhydramine Allergy Unknown Anaphylaxis Verified 01/03/25 14:27 (DIPHENHYDRAMINE) frovatriptan (FROVATRIPTAN) Allergy Unknown Anaphylaxis Verified 01/03/25 14:27 hydroxyzine (HYDROXYZINE) Allergy Unknown Anaphylaxis Verified 01/03/25 14:27 ibuprofen (IBUPROFEN) Allergy Unknown Anaphylaxis Verified 01/03/25 14:27 latex (LATEX) Allergy Unknown Anaphylaxis Verified 01/03/25 14:27 metoclopramide Allergy Unknown Anaphylaxis Verified 01/03/25 14:27 (METOCLOPRAMIDE) nortriptyline (NORTRIPTYLINE) Allergy Unknown Anaphylaxis Verified 01/03/25 14:27 prasterone (DHEA) Allergy Unknown Anaphylaxis Verified 01/03/25 14:27 (PRASTERONE (DHEA)) prednisone (PREDNISONE) Allergy Unknown Anaphylaxis Verified 01/03/25 14:27 prochlorperazine (From Allergy Unknown Anaphylaxis Verified 01/03/25 14:27 COMPAZINE) promethazine (From PHENERGAN) Allergy Unknown Anaphylaxis Verified 01/03/25 14:27 rizatriptan (RIZATRIPTAN) Allergy Unknown Anaphylaxis Verified 01/03/25 14:27 sumatriptan (SUMATRIPTAN) Allergy Unknown Anaphylaxis Verified 01/03/25 14:27 tetracaine (TETRACAINE) Allergy Unknown Anaphylaxis Verified 01/03/25 14:27 topiramate (From TOPAMAX) Allergy Unknown Anaphylaxis Verified 01/03/25 14:27 valproic acid (VALPROIC ACID) Allergy Unknown Anaphylaxis Verified 01/03/25 14:27 vancomycin (VANCOMYCIN) Allergy Unknown Anaphylaxis Verified 01/03/25 14:27 verapamil (VERAPAMIL) Allergy Unknown Anaphylaxis Verified 01/03/25 14:27 PLASTIC MEDICAL TAPE Allergy Mild BLISTERS Uncoded 01/03/25 14:27 AT SITE Review of Systems <Keira Monroy DO - Last Filed: 01/05/25 07:45> Hematologic/Lymphatic On Anticoagulants: Yes (Eliquis) Patient History <Keira Monroy DO - Last Filed: 01/05/25 07:45> Medical History Complex regional pain syndrome I Pulmonary embolism Vaginismus Vaginal discharge Asthma PTSD (post-traumatic stress disorder) Depression Anxiety TIA (transient ischemic attack) Stroke Migraines Headache Shoulder pain (~2019) Fractures Foot pain Fibromyalgia Ankle pain Chicken pox Vertigo Tinnitus Ruptured tympanic membrane Hearing loss Cervical cyst Painful menstrual periods Ovarian cyst Interstitial cystitis Kidney stones Hemorrhoid GI bleeding Gastric ulcer Cardiac arrhythmia Endometriosis Surgical History Anesthesia History of endometrial ablation History of umbilical hernia repair History of tonsillectomy History of bladder surgery History of appendectomy Family History Mother Cancer Mental health problem Grandmother Breast cancer Mental health problem Grandfather Stroke Grandmother Stroke Family/Other Mental health problem Social History household members: significant other Smoking Status: Never smoker Smoking Status: Never smoker alcohol intake frequency: 0-2 drinks per day Exam <Keira Monroy DO - Last Filed: 01/05/25 07:45> Initial Vital Signs Initial Vital Signs: Vital Signs Temperature 98.4 F 01/03/25 16:31 Pulse Rate 80 01/03/25 16:31 Respiratory Rate 18 01/03/25 16:31 Blood Pressure 147/83 H 01/03/25 16:31 Pulse Oximetry 99 01/03/25 16:31 Oxygen Delivery Method Room Air 01/03/25 16:31 GENERAL: [Well-appearing, well-nourished] and in [no acute] distress. HEENT: Head atraumatic,EOMI, pupils reactive, face symmetric, [moist] mucous membranes CARDIOVASCULAR: Regular rate and rhythm without murmurs, rubs or gallops. RESPIRATORY: Breath sounds equal bilaterally, no wheezes rales or rhonchi. ABDOMEN: Soft, nontender. Normoactive bowel sounds all 4 quadrants. No guarding or rebound. EXTREMITIES: Normal range of motion, no clubbing or edema. Neurovascularly intact NEUROLOGICAL: Alert and oriented x4.Normal gait and speech. Cranial nerves II through XII grossly intact. [Good [id number]-cipb, good pcsi-px-htul, strength equal bilaterally, no dysarthria or aphasia, sensation in tact to soft touch bilaterally, no visual changes, no facial droop] SKIN: Warm, dry, no laceration, no petechiae, no rashes or lesions. <Gayathri Melendez DO - Last Filed: 01/04/25 01:30> Initial Vital Signs Initial Vital Signs: Vital Signs Temperature 98.4 F 01/03/25 16:31 Pulse Rate 80 01/03/25 16:31 Respiratory Rate 18 01/03/25 16:31 Blood Pressure 147/83 H 01/03/25 16:31 Pulse Oximetry 99 01/03/25 16:31 Oxygen Delivery Method Room Air 01/03/25 16:31 Scores <Keira Monroy DO - Last Filed: 01/05/25 07:45> NIH Stroke Scale Level of Conciousness: Alert, keenly responsive Ask month/age: Answers both questions correctly. Open/close eyes, close hand: Performs both tasks correctly Best gaze horizontal: Normal Visual espinoza: No visual loss Facial palsy: Normal symetrical movement Left arm drift: Some effort against gravity, cannot maintain, drifts down to bed Right arm drift: No drift for full 10 sec Left leg drift: Drifts down, not to bed Right leg drift: No drift for full 5 sec Limb ataxia: Absent Sensory on face/arms/legs: Normal, no sensory loss Best language: No aphasia, normal Dysarthria: Normal Extinction or inattention: No abnormality Total NIH Stroke scale score: 3 <Gayathri Melendez DO - Last Filed: 01/04/25 01:30> NIH Stroke Scale Total NIH Stroke scale score: 3 Course <Keira Monroy DO - Last Filed: 01/05/25 07:45> Orders Ordered: Discontinued Medications Hydromorphone HCl (Hydromorphone 1 Mg/Ml Syringe) 1 mg IV NOW ONE Stop: 01/03/25 18:37 Last Admin: 01/03/25 18:58 Dose: 1 mg Documented By: DEVKIA Hydromorphone HCl (Hydromorphone 1 Mg/Ml Syringe) 1 mg IV NOW ONE Stop: 01/03/25 20:06 Last Admin: 01/03/25 20:13 Dose: 1 mg Documented By: HUMBERTO Ondansetron HCl 8 mg/ Sodium (Chloride) 54 mls @ 216 mls/hr IV NOW ONE Stop: 01/03/25 18:37 Last Admin: 01/03/25 18:58 Dose: 216 mls/hr Documented By: DEVIKA Magnesium Sulfate 0.5 gm/ (Sodium Chloride) 51 mls @ 51 mls/hr IV NOW ONE Stop: 01/03/25 19:36 Last Admin: 01/03/25 18:56 Dose: 51 mls/hr Documented By: DEVIKA Levetiracetam 1,000 mg/ Sodium (Chloride) 110 mls @ 440 mls/hr IV NOW ONE Stop: 01/03/25 19:49 Last Infusion: 01/03/25 21:06 Dose: Infused Documented By: Admin: 01/03/25 20:14 Dose: 440 mls/hr Documented By: HUMBERTO Ketorolac Tromethamine (Ketorolac 30 Mg/Ml Vial) 30 mg IV NOW ONE Stop: 01/03/25 18:37 Last Admin: 01/03/25 18:57 Dose: 30 mg Documented By: DEVIKA Lorazepam (Lorazepam 2 Mg/Ml Inj) 1 mg IV NOW ONE Stop: 01/03/25 17:28 Last Admin: 01/03/25 17:33 Dose: 1 mg Documented By: DEVIKA Lorazepam (Lorazepam 2 Mg/Ml Inj) 1 mg IV NOW ONE Stop: 01/03/25 18:04 Last Admin: 01/03/25 18:14 Dose: 1 mg Documented By: SAMUEL Ondansetron HCl (Ondansetron 4 Mg/2 Ml Inj) 4 mg IV NOW PRN PRN Reason: Nausea And Vomiting Ondansetron HCl (Ondansetron 4 Mg Odt) 4 mg PO NOW PRN PRN Reason: Nausea And Vomiting Vital Signs Vital signs: Vital Signs - 8 hr 01/03/25 19:00 01/03/25 19:00 01/03/25 19:30 Pulse Rate 70 60 Respiratory Rate 26 H 16 Blood Pressure 138/85 Pulse Oximetry 99 100 Oxygen Delivery Method Non -Rebreather Non -Rebreather 01/03/25 19:30 01/03/25 20:00 01/03/25 20:00 Pulse Rate 61 Respiratory Rate 27 H Blood Pressure 133/78 127/75 Pulse Oximetry 100 Oxygen Delivery Method Room Air 01/03/25 20:30 01/03/25 20:30 01/03/25 21:00 Pulse Rate 62 Respiratory Rate 19 Blood Pressure 128/82 111/81 Pulse Oximetry 100 Oxygen Delivery Method Room Air 01/03/25 21:00 Pulse Rate 70 Respiratory Rate 24 Blood Pressure Pulse Oximetry 97 Oxygen Delivery Method Room Air <Gayathri Melendez DO - Last Filed: 01/04/25 01:30> Orders Ordered: Discontinued Medications Hydromorphone HCl (Hydromorphone 1 Mg/Ml Syringe) 1 mg IV NOW ONE Stop: 01/03/25 18:37 Last Admin: 01/03/25 18:58 Dose: 1 mg Documented By: DEVIKA Hydromorphone HCl (Hydromorphone 1 Mg/Ml Syringe) 1 mg IV NOW ONE Stop: 01/03/25 20:06 Last Admin: 01/03/25 20:13 Dose: 1 mg Documented By: HUMBERTO Ondansetron HCl 8 mg/ Sodium (Chloride) 54 mls @ 216 mls/hr IV NOW ONE Stop: 01/03/25 18:37 Last Admin: 01/03/25 18:58 Dose: 216 mls/hr Documented By: DEVIKA Magnesium Sulfate 0.5 gm/ (Sodium Chloride) 51 mls @ 51 mls/hr IV NOW ONE Stop: 01/03/25 19:36 Last Admin: 01/03/25 18:56 Dose: 51 mls/hr Documented By: DEVIKA Levetiracetam 1,000 mg/ Sodium (Chloride) 110 mls @ 440 mls/hr IV NOW ONE Stop: 01/03/25 19:49 Last Infusion: 01/03/25 21:06 Dose: Infused Documented By: Admin: 01/03/25 20:14 Dose: 440 mls/hr Documented By: HUMBERTO Ketorolac Tromethamine (Ketorolac 30 Mg/Ml Vial) 30 mg IV NOW ONE Stop: 01/03/25 18:37 Last Admin: 01/03/25 18:57 Dose: 30 mg Documented By: DEVIKA Lorazepam (Lorazepam 2 Mg/Ml Inj) 1 mg IV NOW ONE Stop: 01/03/25 17:28 Last Admin: 01/03/25 17:33 Dose: 1 mg Documented By: DEVIKA Lorazepam (Lorazepam 2 Mg/Ml Inj) 1 mg IV NOW ONE Stop: 01/03/25 18:04 Last Admin: 01/03/25 18:14 Dose: 1 mg Documented By: SAMUEL Ondansetron HCl (Ondansetron 4 Mg/2 Ml Inj) 4 mg IV NOW PRN PRN Reason: Nausea And Vomiting Ondansetron HCl (Ondansetron 4 Mg Odt) 4 mg PO NOW PRN PRN Reason: Nausea And Vomiting Vital Signs Vital signs: Vital Signs - 8 hr 01/03/25 19:00 01/03/25 19:00 01/03/25 19:30 Pulse Rate 70 60 Respiratory Rate 26 H 16 Blood Pressure 138/85 Pulse Oximetry 99 100 Oxygen Delivery Method Non -Rebreather Non -Rebreather 01/03/25 19:30 01/03/25 20:00 01/03/25 20:00 Pulse Rate 61 Respiratory Rate 27 H Blood Pressure 133/78 127/75 Pulse Oximetry 100 Oxygen Delivery Method Room Air 01/03/25 20:30 01/03/25 20:30 01/03/25 21:00 Pulse Rate 62 Respiratory Rate 19 Blood Pressure 128/82 111/81 Pulse Oximetry 100 Oxygen Delivery Method Room Air 01/03/25 21:00 Pulse Rate 70 Respiratory Rate 24 Blood Pressure Pulse Oximetry 97 Oxygen Delivery Method Room Air MDM - Neuro Symptoms/Deficit <Keira Monroy, DO - Last Filed: 01/05/25 07:45> Lab Data 01/03/25 17:16 01/03/25 17:16 Labs: Lab Results 01/03/25 01/03/25 Range/Units 17:06 17:16 WBC 7.1 (4.5-11.0) X10^3/uL RBC 4.59 (4.0-5.2) X10^6/uL Hgb 12.8 (12.0-16.0) g/dL Hct 38.4 (36-46) % MCV 83.5 (80-100) fL MCH 28.0 (26-34) PG MCHC 33.5 (30-36) % RDW 12.9 (11.6-14.8) % Plt Count 261 (150-400) X10^3/uL Neut % (Auto) 51.9 (50-75) % Lymph % (Auto) 39.9 (25-40) % [place] % (Auto) 6.2 (3-14) % Eos % (Auto) 0.9 L (2-4) % Baso % (Auto) 1.1 (0-2) % Neut # (Auto) 3700 (1863-4160) /uL Lymph # (Auto) 2800 (7497-5746) /uL [place] # (Auto) 400 (0-900) /uL Eos # (Auto) 100 (0-450) /uL Baso # (Auto) 100 (0-100) /uL PT 12.8 H (9.4-12.5) SECONDS INR 1.1 (0.9-1.3) APTT 31 (25.1-36.5) SECONDS Sodium 141 (137-145) mmol/L Potassium 3.9 (3.4-5.1) mmol/L Chloride 112 H (98-107) mmol/L Carbon Dioxide 19 L (22-32) mmol/L BUN 10 (7-17) mg/dL Creatinine 0.70 (0.52-1.04) mg/dL Estimated GFR > 60 (>60) mL/min BUN/Creatinine Ratio 14.3 (6-22) Glucose 93 (70-99) mg/dL Calcium 8.7 (8.4-10.2) mg/dL Total Bilirubin 0.3 (0.2-1.3) mg/dL AST 25 (14-36) IU/L ALT 16 (<35) IU/L Alkaline Phosphatase 61 (38-126) U/L Total Creatine Kinase 43 (30-135) U/L Troponin I < 0.012 (0.01-0.034) ng/mL Total Protein 7.9 (6.3-8.2) g/dL Albumin 4.7 (3.5-5.0) g/dL Globulin 3.2 (1.7-4.1) g/dL Albumin/Globulin Ratio 1.5 (1.0-2.8) Prolactin 12.8 (3.0-18.6) ng/mL Ethyl Alcohol < 10 (<10) mg/dL Imaging Data CT scan - head: Radiologist's Impression: PROCEDURE: CT STROKE INDICATIONS: Positive BE-FAST, Stroke symptoms TECHNIQUE: Noncontrast 4.5 mm thick angled axial sections acquired from the foramen magnum to the vertex, with coronal reformats. For radiation dose reduction, the following was used: automated exposure control, adjustment of mA and/or kV according to patient size. COMPARISON: None. FINDINGS: Image quality: Diagnostic. CSF spaces: Basal cisterns are patent. No extra-axial fluid collections. Ventricles are normal in size and shape. Brain: No midline shift. No intracranial mass effect or hemorrhage. Glasgow-white matter interface is normal. Skull and face: Calvarium and visualized facial bones are intact, without suspicious lesions. Left ear piercing. Left brow piercing. Sinuses: Visualized sinuses and mastoids are clear. IMPRESSION: Negative examination. Direct phone call of results to Dr. Keira Monroy by myself at 4:59 p.m. PST 01/03/2025 This study fulfills neurological imaging criteria for inclusion or exclusion of acute stroke therapies based on available published neurological imaging guidelines. Dictated by: Anand Torres M.D. on 01/03/2025 at 16:55 Chest x-ray: Radiologist's Impression: PROCEDURE: XR CHEST 1V INDICATIONS: Possible stroke TECHNIQUE: One view of the chest was acquired. COMPARISON: [facility], CHEST FOR PICC PLACEMENT, 10/30/2015, 16:08. FINDINGS: Surgical changes and devices: None. Lungs and pleura: Lungs are clear. No pleural effusions or pneumothorax. Mediastinum: Mediastinal contours appear normal. Heart size is normal. Bones and chest wall: No suspicious bony lesions. Overlying soft tissues appear unremarkable. IMPRESSION: No acute cardiopulmonary abnormality is seen. Dictated by: Anand Torres M.D. on 01/03/2025 at 17:14 CTA - brain/neck: Radiologist's Impression: PROCEDURE: CT ANGIO HEAD AND NECK INDICATIONS: Left sided weakness TECHNIQUE: After the administration of intravenous contrast, 1 mm thick sections acquired from the aortic arch through the [place] of [place]. 3-dimensional tqfccns-kouasmjpj-fjgltffvus (MIP) and/or volume rendering reformats were acquired of the central intracranial vasculature and neck separately. For radiation dose reduction, the following was used: automated exposure control, adjustment of mA and/or kV according to patient size. COMPARISON: None. FINDINGS: Image quality: Diagnostic. Cerebral CT Angiogram: Internal carotid arteries: No acute findings. Intracranial ICA are patent with no significant stenosis. No occlusion. No aneurysm. Anterior cerebral arteries: Unremarkable. No significant stenosis. No occlusion. No aneurysm. Middle cerebral arteries: Unremarkable. No significant stenosis. No occlusion. No aneurysm. Posterior cerebral arteries: Unremarkable. No significant stenosis. No occlusion. No aneurysm. Basilar artery: Unremarkable. No significant stenosis. No occlusion. No aneurysm. Vertebral arteries: Unremarkable as visualized. Dural venous sinuses: Unremarkable given phase of enhancement. Other: Arterial phase appearance of the brain parenchyma is unremarkable. Neck CT Angiogram: Internal carotid arteries: Unremarkable. No significant stenosis. No dissection or occlusion. Common carotid arteries: Unremarkable. No significant stenosis. No dissection or occlusion. External carotid arteries: Unremarkable. No occlusion. Vertebral arteries: Unremarkable. No significant stenosis. No dissection or occlusion. Aortic Arch and Mediastinum: Partially visualized aortic arch unremarkable without evidence of aneurysm. Origins of the great vessels unremarkable. Other: Arterial phase soft tissues of the neck and chest are unremarkable. IMPRESSION: No significant intracranial arterial abnormality is seen. No significant abnormality is seen within the arteries of the neck. Any quantitative measurements of stenosis were performed using NASCET criteria. Dictated by: Anand Torres M.D. on 01/03/2025 at 18:10 Approved by: Anand Torres M.D. on 01/03/2025 at 18:14 MDM Narrative Medical decision making narrative: MDM CC: Left-sided weakness seizure Complicating co-morbidities: Prior stroke pulmonary embolism on Eliquis POTS syndrome Data collected from: Patient and Medical records reviewed: Previous PCP visit Differential considered: CVA, Mert's paralysis, seizure Exam documented above, pertinent findings include: Patient does have significant left-sided weakness she has NIH of 3 she is awake alert oriented Lab Test results independently reviewed as above. Pertinent findings: CBC no leukocytosis no anemia CMP shows some elevated chloride of 112 carbon dioxide pain creatinine with a Troponin negative Independently reviewed EKG as above Imaging studies independently reviewed: Head CT no intracranial hemorrhage CT head and neck angio no large vessel occlusion Consultations: [ ] Treatments: [ ] Re-evaluations: [ ] Discussion: Patient is a 31-year-old female history of CVA pulmonary embolism presenting today with seizure like activity and left-sided weakness. She reports that she does have anaphylaxis to MRI contrast but not the CT contrast. She was given Ativan for claustrophobia for the MRI. Initial head CT does not show any intracranial hemorrhage and CT angio does not show any large vessel occlusion. MRI is pending patient signed out to Dr. Melendez for further disposition Medical decision making narrative: Patient signed out to myself by Dr. Monroy while awaiting MR. Patient is seen and evaluated by myself. Labs show normal white count, hemoglobin and platelets, INR is 1.1, chloride 112 CO2 is 19 electrolytes are otherwise appropriate BUN creatinine is normal, LFTs are normal troponins less than 0.[address] CT head and neck angio shows no significant intracranial arterial abnormalities no significant redness seen with the arteries of the neck. Chest x-ray shows no acute cardiopulmonary abnormality. MR brain Patient received 2 mg total of lorazepam prior to MR. <Gayathriace Regaladokiara, DO - Last Filed: 01/04/25 01:30> Lab Data Labs: Lab Results 01/03/25 01/03/25 Range/Units 17:06 17:16 WBC 7.1 (4.5-11.0) X10^3/uL RBC 4.59 (4.0-5.2) X10^6/uL Hgb 12.8 (12.0-16.0) g/dL Hct 38.4 (36-46) % MCV 83.5 (80-100) fL MCH 28.0 (26-34) PG MCHC 33.5 (30-36) % RDW 12.9 (11.6-14.8) % Plt Count 261 (150-400) X10^3/uL Neut % (Auto) 51.9 (50-75) % Lymph % (Auto) 39.9 (25-40) % [place] % (Auto) 6.2 (3-14) % Eos % (Auto) 0.9 L (2-4) % Baso % (Auto) 1.1 (0-2) % Neut # (Auto) 3700 (6294-9197) /uL Lymph # (Auto) 2800 (3001-3893) /uL [place] # (Auto) 400 (0-900) /uL Eos # (Auto) 100 (0-450) /uL Baso # (Auto) 100 (0-100) /uL PT 12.8 H (9.4-12.5) SECONDS INR 1.1 (0.9-1.3) APTT 31 (25.1-36.5) SECONDS Sodium 141 (137-145) mmol/L Potassium 3.9 (3.4-5.1) mmol/L Chloride 112 H (98-107) mmol/L Carbon Dioxide 19 L (22-32) mmol/L BUN 10 (7-17) mg/dL Creatinine 0.70 (0.52-1.04) mg/dL Estimated GFR > 60 (>60) mL/min BUN/Creatinine Ratio 14.3 (6-22) Glucose 93 (70-99) mg/dL Calcium 8.7 (8.4-10.2) mg/dL Total Bilirubin 0.3 (0.2-1.3) mg/dL AST 25 (14-36) IU/L ALT 16 (<35) IU/L Alkaline Phosphatase 61 (38-126) U/L Total Creatine Kinase 43 (30-135) U/L Troponin I < 0.012 (0.01-0.034) ng/mL Total Protein 7.9 (6.3-8.2) g/dL Albumin 4.7 (3.5-5.0) g/dL Globulin 3.2 (1.7-4.1) g/dL Albumin/Globulin Ratio 1.5 (1.0-2.8) Prolactin 12.8 (3.0-18.6) ng/mL Ethyl Alcohol < 10 (<10) mg/dL ECG Data Attestation: I personally reviewed and interpreted this ECG as follows: Prior ECG tracings: not available for review Interpretation: Sinus bradycardia with first-degree AV block rightward axis incomplete right bundle-branch block rate of 56 [place] 212 QRS of 104 QTC of 434. No prior for comparison. MDM Narrative Medical decision making narrative: [facility] CC: Left-sided weakness seizure Complicating co-morbidities: Prior stroke pulmonary embolism on Eliquis POTS syndrome Data collected from: Patient and Medical records reviewed: Previous PCP visit Differential considered: CVA, Mert's paralysis, seizure Exam documented above, pertinent findings include: Patient does have significant left-sided weakness she has NIH of 3 she is awake alert oriented Lab Test results independently reviewed as above. Pertinent findings: CBC no leukocytosis no anemia CMP shows some elevated chloride of 112 carbon dioxide pain creatinine with a Troponin negative Independently reviewed EKG as above Imaging studies independently reviewed: Head CT no intracranial hemorrhage CT head and neck angio no large vessel occlusion Consultations: [ ] Treatments: [ ] Re-evaluations: [ ] Discussion: Patient is a 31-year-old female history of CVA pulmonary embolism presenting today with seizure like activity and left-sided weakness. She reports that she does have anaphylaxis to MRI contrast but not the CT contrast. She was given Ativan for claustrophobia for the MRI. Initial head CT does not show any intracranial hemorrhage and CT angio does not show any large vessel occlusion. MRI is pending patient signed out to Dr. Melendez for further disposition Medical decision making narrative: Patient signed out to myself by Dr. Monroy while awaiting MR. Patient is seen and evaluated by myself. Labs show normal white count, hemoglobin and platelets, INR is 1.1, chloride 112 CO2 is 19 electrolytes are otherwise appropriate BUN creatinine is normal, LFTs are normal troponins less than 0.[address] CT head and neck angio shows no significant intracranial arterial abnormalities no significant redness seen with the arteries of the neck. Chest x-ray shows no acute cardiopulmonary abnormality. MR brain without contrast shows no restricted diffusion to suggest acute infarct multiple small subcortical white matter FLAIR hyperintensities and frontal lobes increase in number compared to prior exam these are nonspecific morphology is most suggestive migraine headaches less likely arteriosclerosis or vasculitis. No evidence of micro hemorrhages. Patient received 2 mg total of lorazepam prior to MR. Patient also received medication for pain for migraine, pain medication, zofran, magnesium. Loaded with Keppra. Spoke with neurology as patient had what sounds like a witnessed seizure activity with tonic-clonic and postictal phase. Does have a history of prior stroke, PE, POTS patient is anticoagulated on apixaban. On examination patient does have some persistent left-sided weakness. She states her initial stroke she had left-sided deficits when she is very tired or she has a bad migraine she will often get recurrence of this. She has not gone quite back to her baseline since seizure activity. Has been witnessed states she had about 10 sec of shaking followed about 5-10 minutes of postictal state. She has passed out in the past and he states this presented differently. Suspect patient did likely have a seizure family notes that she had 1 prior episode sometime in the past year that they suspected was seizure-like activity. Spoke with neurology Yazmin Mcadams. Discussed patient has a what sounds like witnessed seizure activity with tonic-clonic postictal phase, has a negative MR for stroke, reviewed patient's imaging, findings labs she is still has some persistent left-sided weakness that has been slowly improving but not quite back to her baseline. Patient did note that she sometimes gets recurrence of her left-sided weakness when she is tired or if she has a migraine. She does have a headache today. EEG as outpatient and go ahead and start keppra 1gram follow up by 750 mg p.o. b.i.d.. With the patient to follow up outpatient shortly with their office. On rechecked after medications patient is feeling much improved. We reviewed all of her findings from today, plan for follow up with Neurology return precautions. Patient feels comfortable with this plan. Discharge Plan Departure Patient Disposition: Home Clinical Impression: Observed seizure-like activity Instructions: DI for Seizure Disorder -- Adult Activity Restrictions/Additional Instructions: Follow up with Neurology I did speak with your team this evening. They would like for you to follow up for re-evaluation and outpatient EEG. Please call the office in the morning to set up a follow up appointment. They would like to start you on an antiseizure medication called Keppra, takes 750 mg every 12 hours. Prescription sent to [facility] in [place]. Please return if develop fevers, new changes to mental status, any new neurologic changes new weakness movement changes, recurrent seizure activity, persistent vomiting, lightheadedness or passing out or other new or concerning changes. Prescriptions: New levetiracetam [Keppra] 750 mg tablet 750 mg PO Q12H Qty: 60 0RF oxycodone 5 mg tablet 5 mg PO BID PRN (Reason: pain) Qty: 5 0RF No Action (DME) Disabled Parking Permit See Rx Instructions .ROUTE .MEDSUPPLY Qty: 1 0RF Rx Instructions: I find this patient to be medically disabled and qualified for Disabled Parking as indicated and signed on the accompanying Disabled Parking Application for Individuals. levalbuterol tartrate 45 mcg/actuation HFA aerosol inhaler 2 puff inhalation Q4-6H PRN (Reason: shortness of breath or wheezing) Qty: 15 3RF oxycodone 5 mg tablet 5 mg PO BID PRN (Reason: pain) Qty: 60 0RF apixaban 5 mg tablet 5 mg PO BID zinc sulfate 50 mg zinc (220 mg) tablet 50 mg PO DAILY clonazepam 1 mg tablet 1 - 2 mg PO BID melatonin 10 mg capsule 10 mg PO BEDTIME PRN (Reason: insomnia) biotin 1 mg capsule 1 mg PO DAILY cholecalciferol (vitamin D3) 250 mcg (10,000 unit) capsule 250 mcg PO DAILY magnesium glycinate 100 mg tablet 100 mg PO DAILY epinephrine 0.3 mg/0.3 mL auto-injector 0.3 mg IM ONCE Qty: 2 3RF Rx Instructions: as a single dose temazepam 15 mg capsule 15 mg PO .COMPLEX Rx Instructions: 15 mg orally QD; hyoscyamine sulfate 0.125 mg tablet See Rx Instructions PO .COMPLEX PRN (Reason: dyspepsia) Rx Instructions: orally PRN; ondansetron HCl 8 mg tablet See Rx Instructions PO Q12H PRN (Reason: nausea and vomiting) Qty: 30 3RF Rx Instructions: take 1/2-1 tabs orally every 12 hours PRN; pregabalin [Lyrica] 100 mg capsule 100 mg PO TID Qty: 270 1RF sertraline 100 mg tablet 150 mg PO DAILY propranolol 10 mg tablet 10 - 20 mg PO ONCE PM hydromorphone 2 mg tablet 2 mg PO Q6H PRN (Reason: pain) naloxone 4 mg/actuation spray,non-aerosol 1 spray intranasal Q3M Referrals: Jose Miguel Gilliland MD [Primary Care Provider, Family Practice] Stand Alone Forms: Patient Portal/API
[2025-01-03] MEDS: MAGNESIUM SULFATE IV (18:56)
[2025-01-03] MEDS: SODIUM CHLORIDE 0.9% IV (18:56)
[2025-01-03] MEDS: KETOROLAC 30 MG/ML VIAL IV (18:57)
[2025-01-03] MEDS: ONDANSETRON 8 MG in SODIUM CHLORIDE 0.9% 50 ML 216 MG IV (18:58)
[2025-01-03 19:01] LABS: Ethanol (ETOH) < 10 mg/dL (<10)
--- NOTE | 2025-01-03 19:52 | PC.NURSE ---
Pt awake and alert sitting in ED stretcher speaking with . Pt engages appropriately with RN. No distress noted at this time. VS stable. Pt remains connected to cardiac, reps, blood pressure, and pulse ox monitors with alarms on and audible. Call light within reach. Continued plan of care discussed with pt and . Left hand PIV removed per pt request. No other requests or complaints at this time.
--- NOTE | 2025-01-03 19:57 | EKG_ITS ---
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
--- NOTE | 2025-01-03 21:20 | PC.NURSE ---
Keppra IV given slower over 30 minutes d/t pt anxiety over starting new med. Rate approved by Dr. Melendez. Pt with no adverse reactions to administered medication.
== END 2025-01-03 21:46 | disposition home or self-care (01) ==
PROVIDERS: Emergency Medicine; Emergency Provider Emergency Medicine; PCP Family Medicine
DX: R56.9 Unspecified convulsions (principal); R53.1 Weakness; R29.703 NIHSS score 3; Z86.711 Personal history of pulmonary embolism; Z79.01 Long term (current) use of anticoagulants; Z86.73 Personal history of transient ischemic attack (TIA), and cerebral infarction without residual deficits
CPT/HCPCS: 36415; 70450; 70496; 70498; 70551; 71045; 80053; 80320; 82550; 84146; 84484; 85025; 85610; 85730; 93005; 96360; 96361; 96365; 96375; 96376; 99285; J1171; J1885; J1953; J2060; J2405; J3475; J7030; J7050; Q9967

== ENCOUNTER 2025-01-10 13:45 | Day surgery (SDC) | payer OTHER, SELFPAY ==
[2024-12-25 11:50] VITALS: BMI 22.6
[2025-01-10] VITALS (11 sets, daily range): BP systolic 101–146; BP diastolic 59–88; PULSE 64–96; RESP 4–17; TEMP 36.3–36.6; O2SAT 95–100
--- NOTE | 2025-01-10 | DI.RAD.S_ITS ---
PROCEDURE: XR CHEST 1V INDICATIONS: PORT-A-CATH TECHNIQUE: One limited view of the chest was acquired. COMPARISON: [facility], , XR CHEST 1V, 01/03/2025, 16:52. FINDINGS: Heart, mediastinum and pulmonary vascular: Heart is normal in size and configuration. Mediastinum is unremarkable. Pulmonary vascular is normal. Right IJ Port-A-Cath tip overlies the SVC right atrial junction. No evidence of catheter disruption. Lungs: Clear Pleural spaces: Normal-no effusions or pneumothorax. Bones and soft tissues: Normal IMPRESSION: Normal chest. Dictated by: Esteban Wallace M.D. on 01/11/2025 at 12:06 Approved by: Esteban Wallace M.D. on 01/11/2025 at 12:07
[2025-01-10] MEDS: LACTATED RINGERS 1,000 ML 42 ML IV ×2 (14:37→17:59)
--- NOTE | 2025-01-10 16:28 | PM.PREOP ---
Pre-operative Note COVID-19 COVID-19 status: Not tested Interval Note History & Physical reviewed/Exam performed by Physician: Yes Changes to H&P: No ASA Class (for procedural sedation): IV
[2025-01-10] MEDS: KETOROLAC 30 MG/ML VIAL IV (16:51)
[2025-01-10] MEDS: MIDAZOLAM 2 MG/2 ML VIAL IV (16:52)
[2025-01-10] MEDS: ONDANSETRON 4 MG/2 ML INJ 8 MG IV (16:52)
--- NOTE | 2025-01-10 17:17 | SUR.PREOP ---
Pt to OR on Stretcher with Trudy GREENE
--- NOTE | 2025-01-10 17:54 | SUR.OPER ---
Supine on padded OR bed, head on pillow, arms padded and tucked at sides, legs uncrossed, safety belt at thigh, tape over blanket over lower legs .
--- NOTE | 2025-01-10 18:32 | PM.OP.1 ---
Operative Date/Time/Diagnoses Date of procedure: 01/10/25 Time of procedure: 18:32 Pre-op diagnosis: Postural orthostatic tachycardia syndrome Post-op diagnosis: same Procedure & Clinicians Procedure: Port Same procedure(s) as scheduled: Yes Surgeon: Evangelista Person Assisted?: No Anesthesia Type: General Operative Notes Findings: Yes Applied: none Estimated Blood Loss (mL): 5 Procedure in detail: The patient was brought to the operating room, placed on the table in the supine position with the arms tucked. Ancef was administered. Anesthesia was induced via LMA. A time-out was performed. The right chest and neck were prepped and draped in the usual fashion. An ultrasound was used to identify the right internal jugular vein. The vein was noted to be patent. An image was saved and printed and placed in the chart. The right internal jugular vein was accessed via the Seldinger technique under ultrasound guidance. The guidewire was inserted into the superior vena cava. C-arm was used to confirm proper position of the guidewire in the superior vena cava and no ectopy was noted. The needle was removed and the wire was clamped to the drape. Next, a port pocket was created just inferior to the medial clavicle using a 15 blade scalpel. Dissection was carried down to the pectoral fascia. A subcutaneous pocket was created using a combination of cautery and blunt dissection. Next, the port which was primed with injectable saline, was secured to the fascia with 3-0 PDS sutures left untied and clamped. The neck incision was extended with an 11 blade scalpel to approximately 5 mm. The dilator and peel-away sheath were inserted over the wire without resistance. The catheter was passed from the neck incision to the chest incision in the subcutaneous tissue using the tunnelling device. The wire and dilator were then removed and the catheter inserted through the peel-away sheath to deliver it into the superior vena cava. The depth of the device was checked using the C-arm and the tip of the device was noted to be in the distal superior vena cava. The exterior portion of the catheter was then trimmed and attached to the port using the strain relief collar. A final image showed good position of the catheter with no kinks. The port was then tucked into the subcutaneous pocket and the sutures were tied to secure the device. The port was then accessed using the Turk needle and it was noted that the device yady and flushed easily without resistance. Approximately 4 mL of heparinized saline were injected into the device. The skin incisions were closed with 3-0 Vicryl and 4-0 Monocryl. Steri-Strips were applied patient was awakened and brought to recovery room. Ultrasound: The right internal jugular vein was patent. The right carotid artery was visualized adjacent to the vein. Venipuncture was visualized in real-time using the ultrasound. Fluoroscopy: The device was positioned appropriately with the distal end of the catheter near the atriocaval junction. There were no kinks in the catheter. Complications: none Post-operative Condition: stable Disposition: PACU
--- NOTE | 2025-01-10 19:47 | SUR.PHASEII ---
1730:Patient informed of needed Xray to confirm port placement; portable xray present and patient refused to have the xray completed. Patient now leaving without xray. Dr. Person notified of patient refusal. Patient discharged in stable condition; discharge instructions provided along with port information. All belongings sent home with patient.
[2025-01-17 09:39] LABS: B2-Glycoprotein I IgA AB < 9 (0-25); B2-Glycoprotein I IgG AB < 9 (0-20); B2-Glycoprotein I IgM AB < 9 (0-32); Cardiolipin Ab IgA < 9 APL U/mL (0-11); Cardiolipin Ab IgG < 9 GPL U/mL (0-14); Cardiolipin Ab IgM < 9 MPL U/mL (0-12); Dilute Russell Viper Venom 37.6 sec (0.0-47.0); PTT-LA 35.0 sec (0.0-43.5)
== END 2025-01-10 19:45 | disposition home or self-care (01) ==
PROVIDERS: Internal Medicine Medical Oncology; PCP Family Medicine; Referring Provider Family Medicine; Visit Provider Surgery
PROC: (CPT 36561; principal; 2025-01-10 15:15)
DX: G90.A Postural orthostatic tachycardia syndrome [POTS] (principal); G90.4 Autonomic dysreflexia; S50.11XA Contusion of right forearm, initial encounter; G43.909 Migraine, unspecified, not intractable, without status migrainosus; Z87.891 Personal history of nicotine dependence; Z86.711 Personal history of pulmonary embolism; Z79.01 Long term (current) use of anticoagulants; Z86.718 Personal history of other venous thrombosis and embolism
CPT/HCPCS: 36561; 71045; 76000; 81025; 85613; 85732; 86146; 86147; C1788; J0330; J0689; J1171; J1644; J1885; J2250; J2405; J2704; J3475; J7120